=== PATIENT | male | born 1975 | race African-American/Black ===

== ENCOUNTER → 2017-09-28 | Outpatient (CLI) | payer OTHER ==
[~2017-09-28] MED LIST: BENZ100A PO; CEPH500 PO; CYCL10 PO; Cleocin HCl300 MG PO; Naprosyn500 MG PO; SACC250C PO; Sulfamethoxazo1 EAC1 PO; Sulfamethoxazo1 EAC4 PO; TRAM50 PO; XARELTO10 MG PO
[2017-09-28 09:31] LABS: BASOPHILS ABSOLUTE AUTO 0.06 K/mm3 (0.00-0.23); BASOPHILS PERCENT AUTO 0 % (0-2); EOSINOPHILS PERCENT AUTO 1 % (0-6); Hematocrit 40.8 % (37.0-53.0); Hemoglobin 14.1 g/dL (13.5-17.5); IMMATURE GRAN PERCENT AUTO 1 % (0-1); LYMPHOCYTES ABSOLUTE AUTO 1.86 K/mm3 (0.84-5.20); LYMPHOCYTES PERCENT AUTO 10 % (21-46); MONOCYTES ABSOLUTE AUTO 1.66 K/mm3 (0.16-1.47); MONOCYTES PERCENT AUTO 9 % (4-13); Mean Corpuscular HGB 31.1 pg (26.0-34.0); Mean Corpuscular HGB Conc 34.6 g/dL (31.5-36.5); Mean Corpuscular Volume 90 fL (80-100); Mean Platelet Volume 10.3 fL (9.1-12.4); NEUTROPHILS PERCENT AUTO 80 % (41-73); Platelet Count 187 K/mm3 (150-400); RDW Coefficient Variation 12.7 % (11.7-14.2); RDW Standard Deviation 41.8 fL (35.1-46.3); Red Blood Cell Count 4.54 M/mm3 (4.30-5.90); White Blood Cell Count 18.48 K/mm3 (4.00-11.30)
[2017-09-28 09:43] LABS: Alanine Aminotransfer (ALT/SGP 23 U/L (12-78); Albumin, Blood 3.6 g/dL (3.4-5.0); Albumin/Globulin Ratio 0.8 (0.8-1.8); Alk Phos 50 U/L (40-126); Anion Gap 12 mmol/L (6-16); Aspartate Aminotrans (AST/SGOT 15 U/L (12-37); Bilirubin, Total 0.6 mg/dL (0.1-1.0); Blood Urea Nitrogen 12 mg/dL (8-24); Bun/Creatinine Ratio 10.9 (12.0-20.0); CO2, Blood 23 mmol/L (21-32); Chloride, Blood 102 mmol/L (98-108); Globulin, Blood 4.4 g/dL (2.2-4.0); Glomerular Filtration Rate >60 (60-); Glucose, Blood 130 mg/dL (70-99); Potassium, Blood 4.3 mmol/L (3.5-5.5); Sodium, Blood 137 mmol/L (136-145)
== END ==
LOC: LAB SHORT 09:28
PROVIDERS: Physician Assistant Medical
DX: R60.9 Edema, unspecified (principal)
CPT/HCPCS: 80053; 85025

== ENCOUNTER 2017-09-29 20:48 | Inpatient (IN) | payer OTHER ==
[~2017-09-29] VITALS: Ht 182.9 cm; Wt 156.1 kg
[~2017-09-29 20:48] MED LIST changes: -CEPH500 PO; -CYCL10 PO; -Cleocin HCl300 MG PO; -Naprosyn500 MG PO; -SACC250C PO; -Sulfamethoxazo1 EAC1 PO; -Sulfamethoxazo1 EAC4 PO; -TRAM50 PO; -XARELTO10 MG PO
[2017-09-29] MEDS ORDERED: CEPH500 PO (21:33)
[2017-09-29] MEDS ORDERED: Sulfamethoxazo1 EAC1 PO (21:33)
[2017-09-29] MEDS ORDERED: Sulfamethoxazo1 EAC4 PO (21:34)
[2017-09-29 22:14] LABS: BASOPHILS ABSOLUTE AUTO 0.04 K/mm3 (0.00-0.23); BASOPHILS PERCENT AUTO 0 % (0-2); EOSINOPHILS ABSOLUTE AUTO 0.11 K/mm3 (0.00-0.68); EOSINOPHILS PERCENT AUTO 1 % (0-6); Hematocrit 39.9 % (37.0-53.0); Hemoglobin 13.3 g/dL (13.5-17.5); IMMATURE GRAN ABSOLUTE AUTO 0.07 K/mm3 (0.00-0.10); IMMATURE GRAN PERCENT AUTO 0 % (0-1); LYMPHOCYTES ABSOLUTE AUTO 1.87 K/mm3 (0.84-5.20); LYMPHOCYTES PERCENT AUTO 10 % (21-46); MONOCYTES ABSOLUTE AUTO 1.24 K/mm3 (0.16-1.47); MONOCYTES PERCENT AUTO 7 % (4-13); Mean Corpuscular HGB 30.6 pg (26.0-34.0); Mean Corpuscular HGB Conc 33.3 g/dL (31.5-36.5); Mean Corpuscular Volume 92 fL (80-100); Mean Platelet Volume 10.2 fL (9.1-12.4); NEUTROPHILS ABSOLUTE AUTO 15.28 K/mm3 (1.96-9.15); NEUTROPHILS PERCENT AUTO 82 % (41-73); Platelet Count 163 K/mm3 (150-400); RDW Coefficient Variation 12.5 % (11.7-14.2); RDW Standard Deviation 42.5 fL (35.1-46.3); Red Blood Cell Count 4.34 M/mm3 (4.30-5.90); White Blood Cell Count 18.61 K/mm3 (4.00-11.30)
[2017-09-29 22:30] LABS: Albumin, Blood 3.2 g/dL (3.4-5.0); Albumin/Globulin Ratio 0.7 (0.8-1.8); Bilirubin, Total 0.4 mg/dL (0.1-1.0); Bun/Creatinine Ratio 13.2 (12.0-20.0); Calcium, Blood 8.8 mg/dL (8.5-10.1); Creatinine, Blood 1.52 mg/dL (0.60-1.20); Globulin, Blood 4.8 g/dL (2.2-4.0); Potassium, Blood 3.9 mmol/L (3.5-5.5)
[2017-09-30 03:55] LABS: Source, Urine Clean Catch
[2017-09-30 03:58] LABS: Bilirubin, Urine Neg (Neg); Blood, Urine 1+ (Neg); Glucose Qualitative, Urine Neg (Neg); Ketones, Urine Neg (Neg); Leukocyte Esterase, Urine Neg (Neg); Nitrite, Urine Neg (Neg); Protein, Urine 2+ (Neg); Specific Gravity, Urine 1.025 (1.003-1.022); Urobilinogen, Urine 1+ (Normal)
[2017-09-30 03:58] LABS: BASOPHILS ABSOLUTE AUTO 0.04 K/mm3 (0.00-0.23); BASOPHILS PERCENT AUTO 0 % (0-2); EOSINOPHILS ABSOLUTE AUTO 0.21 K/mm3 (0.00-0.68); EOSINOPHILS PERCENT AUTO 1 % (0-6); Hematocrit 36.4 % (37.0-53.0); Hemoglobin 12.2 g/dL (13.5-17.5); IMMATURE GRAN ABSOLUTE AUTO 0.08 K/mm3 (0.00-0.10); IMMATURE GRAN PERCENT AUTO 1 % (0-1); LYMPHOCYTES ABSOLUTE AUTO 1.67 K/mm3 (0.84-5.20); LYMPHOCYTES PERCENT AUTO 10 % (21-46); MONOCYTES ABSOLUTE AUTO 1.45 K/mm3 (0.16-1.47); MONOCYTES PERCENT AUTO 9 % (4-13); Mean Corpuscular HGB 30.4 pg (26.0-34.0); Mean Corpuscular HGB Conc 33.5 g/dL (31.5-36.5); Mean Corpuscular Volume 91 fL (80-100); Mean Platelet Volume 10.4 fL (9.1-12.4); NEUTROPHILS ABSOLUTE AUTO 12.75 K/mm3 (1.96-9.15); NEUTROPHILS PERCENT AUTO 79 % (41-73); Platelet Count 149 K/mm3 (150-400); RDW Coefficient Variation 12.5 % (11.7-14.2); RDW Standard Deviation 41.4 fL (35.1-46.3); Red Blood Cell Count 4.01 M/mm3 (4.30-5.90)
[2017-09-30 04:06] LABS: Appearance, Urine Clear (Clear); Color, Urine Yellow (P-Yellow)
[2017-09-30 04:07] LABS: Bacteria Few /hpf; Red Blood Cells, Urine 0-2 /hpf (0-2); Squamous Epithelial Cells Rare /hpf (Few)
[2017-09-30 04:23] LABS: Alanine Aminotransfer (ALT/SGP 14 U/L (12-78); Albumin, Blood 2.6 g/dL (3.4-5.0); Albumin/Globulin Ratio 0.5 (0.8-1.8); Alk Phos 51 U/L (50-136); Anion Gap 9 mmol/L (6-16); Aspartate Aminotrans (AST/SGOT 7 U/L (12-37); Bilirubin, Total 0.4 mg/dL (0.1-1.0); Blood Urea Nitrogen 16 mg/dL (8-24); Bun/Creatinine Ratio 14.7 (12.0-20.0); CO2, Blood 24 mmol/L (21-32); Calcium, Blood 8.2 mg/dL (8.5-10.1); Chloride, Blood 103 mmol/L (98-108); Creatinine, Blood 1.09 mg/dL (0.60-1.20); Globulin, Blood 4.8 g/dL (2.2-4.0); Glomerular Filtration Rate >60 (60-); Glucose, Blood 119 mg/dL (70-99); Potassium, Blood 3.8 mmol/L (3.5-5.5); Sodium, Blood 136 mmol/L (136-145); Total Protein, Blood 7.4 g/dL (6.4-8.2)
[2017-10-01 04:57] LABS: BASOPHILS ABSOLUTE AUTO 0.01 K/mm3 (0.00-0.23); BASOPHILS PERCENT AUTO 0 % (0-2); EOSINOPHILS PERCENT AUTO 0 % (0-6); Hemoglobin 12.4 g/dL (13.5-17.5); IMMATURE GRAN ABSOLUTE AUTO 0.21 K/mm3 (0.00-0.10); IMMATURE GRAN PERCENT AUTO 1 % (0-1); LYMPHOCYTES ABSOLUTE AUTO 1.42 K/mm3 (0.84-5.20); LYMPHOCYTES PERCENT AUTO 8 % (21-46); MONOCYTES PERCENT AUTO 8 % (4-13); Mean Corpuscular HGB 30.5 pg (26.0-34.0); Mean Corpuscular HGB Conc 33.5 g/dL (31.5-36.5); Mean Corpuscular Volume 91 fL (80-100); Mean Platelet Volume 10.3 fL (9.1-12.4); NEUTROPHILS ABSOLUTE AUTO 15.61 K/mm3 (1.96-9.15); NEUTROPHILS PERCENT AUTO 84 % (41-73); Platelet Count 198 K/mm3 (150-400); RDW Coefficient Variation 12.4 % (11.7-14.2); RDW Standard Deviation 41.3 fL (35.1-46.3); Red Blood Cell Count 4.06 M/mm3 (4.30-5.90); White Blood Cell Count 18.65 K/mm3 (4.00-11.30)
[2017-10-01 15:03] LABS: Heparin PF4 Screen 0.143 OD (<0.400)
[2017-10-02 05:28] LABS: BASOPHILS ABSOLUTE AUTO 0.03 K/mm3 (0.00-0.23); BASOPHILS PERCENT AUTO 0 % (0-2); EOSINOPHILS ABSOLUTE AUTO 0.08 K/mm3 (0.00-0.68); EOSINOPHILS PERCENT AUTO 1 % (0-6); Hematocrit 36.1 % (37.0-53.0); Hemoglobin 11.9 g/dL (13.5-17.5); IMMATURE GRAN PERCENT AUTO 1 % (0-1); LYMPHOCYTES ABSOLUTE AUTO 2.59 K/mm3 (0.84-5.20); LYMPHOCYTES PERCENT AUTO 22 % (21-46); MONOCYTES ABSOLUTE AUTO 0.86 K/mm3 (0.16-1.47); MONOCYTES PERCENT AUTO 7 % (4-13); Mean Corpuscular HGB 30.4 pg (26.0-34.0); Mean Corpuscular Volume 92 fL (80-100); Mean Platelet Volume 10.5 fL (9.1-12.4); NEUTROPHILS PERCENT AUTO 69 % (41-73); Platelet Count 202 K/mm3 (150-400); RDW Coefficient Variation 12.5 % (11.7-14.2); RDW Standard Deviation 42.7 fL (35.1-46.3); Red Blood Cell Count 3.91 M/mm3 (4.30-5.90); White Blood Cell Count 11.86 K/mm3 (4.00-11.30)
[2017-10-02 05:44] LABS: Anion Gap 7 mmol/L (6-16); Blood Urea Nitrogen 18 mg/dL (8-24); Bun/Creatinine Ratio 27.1 (12.0-20.0); CO2, Blood 27 mmol/L (21-32); Calcium, Blood 8.4 mg/dL (8.5-10.1); Chloride, Blood 108 mmol/L (98-108); Creatinine, Blood 0.67 mg/dL (0.60-1.20); Glomerular Filtration Rate >60 (60-); Glucose, Blood 82 mg/dL (70-99); Potassium, Blood 4.3 mmol/L (3.5-5.5); Sodium, Blood 142 mmol/L (136-145)
[2017-10-02] MEDS ORDERED: XARELTO10 MG PO (09:37)
[2017-10-02] MEDS ORDERED: SACC250C PO (09:38)
== END 2017-10-02 11:42 | disposition home or self-care (01) | DRG 872 ==
LOC: ER 20:48 → MEDS 23:21
PROVIDERS: Emergency Medicine; Internal Medicine
DX: A41.9 Sepsis, unspecified organism (principal); N17.9 Acute kidney failure, unspecified; D69.6 Thrombocytopenia, unspecified; E66.01 Morbid (severe) obesity due to excess calories; Z68.42 Body mass index [BMI] 45.0-49.9, adult; I80.02 Phlebitis and thrombophlebitis of superficial vessels of left lower extremity; L03.116 Cellulitis of left lower limb; D64.9 Anemia, unspecified; B35.1 Tinea unguium; G47.30 Sleep apnea, unspecified; I87.2 Venous insufficiency (chronic) (peripheral); N18.1 Chronic kidney disease, stage 1; B95.5 Unspecified streptococcus as the cause of diseases classified elsewhere; E66.9 Obesity, unspecified; F17.210 Nicotine dependence, cigarettes, uncomplicated
CPT/HCPCS: 36415; 80048; 80053; 81001; 83605; 85025; 86022; 87040; 96365; 99285; J0690; J2930; J7030

== ENCOUNTER 2017-12-01 10:36 | Emergency (ER) | payer OTHER ==
[~2017-12-01] VITALS: Ht 182.9 cm; Wt 161.0 kg
[~2017-12-01 10:36] MED LIST changes: +CEPH500 PO; +SACC250C PO; +Sulfamethoxazo1 EAC1 PO; +Sulfamethoxazo1 EAC4 PO; +XARELTO10 MG PO
[2017-12-01] MEDS ORDERED: TRAM50 PO (10:54)
[2017-12-01 11:44] LABS: BASOPHILS ABSOLUTE AUTO 0.04 K/mm3 (0.00-0.23); BASOPHILS PERCENT AUTO 1 % (0-2); EOSINOPHILS ABSOLUTE AUTO 0.46 K/mm3 (0.00-0.68); EOSINOPHILS PERCENT AUTO 5 % (0-6); Hemoglobin 12.3 g/dL (13.5-17.5); IMMATURE GRAN ABSOLUTE AUTO 0.04 K/mm3 (0.00-0.10); IMMATURE GRAN PERCENT AUTO 1 % (0-1); LYMPHOCYTES ABSOLUTE AUTO 2.95 K/mm3 (0.84-5.20); LYMPHOCYTES PERCENT AUTO 34 % (21-46); MONOCYTES ABSOLUTE AUTO 0.63 K/mm3 (0.16-1.47); MONOCYTES PERCENT AUTO 7 % (4-13); Mean Corpuscular HGB Conc 33.2 g/dL (31.5-36.5); Mean Corpuscular Volume 90 fL (80-100); Mean Platelet Volume 10.1 fL (9.1-12.4); NEUTROPHILS ABSOLUTE AUTO 4.64 K/mm3 (1.96-9.15); NEUTROPHILS PERCENT AUTO 53 % (41-73); Platelet Count 216 K/mm3 (150-400); RDW Coefficient Variation 12.7 % (11.7-14.2); White Blood Cell Count 8.76 K/mm3 (4.00-11.30)
[2017-12-01 12:03] LABS: Alanine Aminotransfer (ALT/SGP 19 U/L (12-78); Albumin/Globulin Ratio 0.6 (0.8-1.8); Alk Phos 55 U/L (50-136); Anion Gap 6 mmol/L (6-16); Aspartate Aminotrans (AST/SGOT 13 U/L (12-37); Bilirubin, Total 0.3 mg/dL (0.1-1.0); Blood Urea Nitrogen 11 mg/dL (8-24); Bun/Creatinine Ratio 11.7 (12.0-20.0); CO2, Blood 25 mmol/L (21-32); Calcium, Blood 8.6 mg/dL (8.5-10.1); Chloride, Blood 108 mmol/L (98-108); Creatinine, Blood 0.94 mg/dL (0.60-1.20); Globulin, Blood 4.9 g/dL (2.2-4.0); Glomerular Filtration Rate >60 (60-); Glucose, Blood 119 mg/dL (70-99); Potassium, Blood 3.9 mmol/L (3.5-5.5); Sodium, Blood 139 mmol/L (136-145); Total Protein, Blood 7.9 g/dL (6.4-8.2)
[2017-12-01] MEDS ORDERED: Cleocin HCl300 MG PO (13:14)
== END 2017-12-01 14:09 | disposition home or self-care (01) ==
LOC: ER 10:36
PROVIDERS: Physician Assistant
DX: L03.116 Cellulitis of left lower limb (principal); Z79.2 Long term (current) use of antibiotics; F17.210 Nicotine dependence, cigarettes, uncomplicated
CPT/HCPCS: 36415; 80053; 83605; 85025; 87040; 93971; 96365; 99284

== ENCOUNTER 2018-02-16 17:48 | Emergency (ER) | payer OTHER ==
[~2018-02-16] VITALS: Ht 182.9 cm; Wt 163.3 kg
[~2018-02-16 17:48] MED LIST changes: +Cleocin HCl300 MG PO; +TRAM50 PO
[2018-02-16 19:06] LABS: BASOPHILS ABSOLUTE AUTO 0.03 K/mm3 (0.00-0.23); BASOPHILS PERCENT AUTO 0 % (0-2); EOSINOPHILS ABSOLUTE AUTO 0.33 K/mm3 (0.00-0.68); EOSINOPHILS PERCENT AUTO 4 % (0-6); Hematocrit 37.9 % (37.0-53.0); Hemoglobin 12.6 g/dL (13.5-17.5); IMMATURE GRAN ABSOLUTE AUTO 0.02 K/mm3 (0.00-0.10); IMMATURE GRAN PERCENT AUTO 0 % (0-1); LYMPHOCYTES ABSOLUTE AUTO 1.91 K/mm3 (0.84-5.20); LYMPHOCYTES PERCENT AUTO 23 % (21-46); MONOCYTES ABSOLUTE AUTO 0.54 K/mm3 (0.16-1.47); MONOCYTES PERCENT AUTO 7 % (4-13); Mean Corpuscular HGB 30.1 pg (26.0-34.0); Mean Corpuscular HGB Conc 33.2 g/dL (31.5-36.5); Mean Corpuscular Volume 91 fL (80-100); Mean Platelet Volume 10.2 fL (9.1-12.4); NEUTROPHILS ABSOLUTE AUTO 5.53 K/mm3 (1.96-9.15); NEUTROPHILS PERCENT AUTO 66 % (41-73); Platelet Count 179 K/mm3 (150-400); RDW Standard Deviation 42.5 fL (35.1-46.3); Red Blood Cell Count 4.18 M/mm3 (4.30-5.90); White Blood Cell Count 8.36 K/mm3 (4.00-11.30)
[2018-02-16 19:26] LABS: Alanine Aminotransfer (ALT/SGP 23 U/L (12-78); Albumin, Blood 3.1 g/dL (3.4-5.0); Albumin/Globulin Ratio 0.7 (0.8-1.8); Alk Phos 56 U/L (50-136); Anion Gap 8 mmol/L (6-16); Aspartate Aminotrans (AST/SGOT 20 U/L (12-37); Bilirubin, Total 0.2 mg/dL (0.1-1.0); Blood Urea Nitrogen 11 mg/dL (8-24); Bun/Creatinine Ratio 12.1 (12.0-20.0); CO2, Blood 24 mmol/L (21-32); Calcium, Blood 8.2 mg/dL (8.5-10.1); Chloride, Blood 104 mmol/L (98-108); Creatinine, Blood 0.91 mg/dL (0.60-1.20); Globulin, Blood 4.4 g/dL (2.2-4.0); Glomerular Filtration Rate >60 (60-); Glucose, Blood 133 mg/dL (70-99); Potassium, Blood 3.8 mmol/L (3.5-5.5); Sodium, Blood 136 mmol/L (136-145); Total Protein, Blood 7.5 g/dL (6.4-8.2); Troponin I <0.015 ng/mL (0.000-0.040)
[2018-02-16 22:00] LABS: CPK Creatine Kinase 229 U/L (39-308)
== END 2018-02-16 23:15 | disposition home or self-care (01) ==
LOC: ER 17:48
PROVIDERS: Emergency Medicine
DX: E86.0 Dehydration (principal); R55 Syncope and collapse; F17.200 Nicotine dependence, unspecified, uncomplicated
CPT/HCPCS: 36415; 71046; 80053; 82550; 83880; 84484; 85025; 93005; 93010; 99284-25; J7030

== ENCOUNTER 2018-03-25 19:35 | Emergency (ER) | payer OTHER ==
[~2018-03-25] VITALS: Ht 182.9 cm; Wt 165.6 kg
[2018-03-25] MEDS ORDERED: CYCL10 PO (21:11)
[2018-03-25] MEDS ORDERED: Naprosyn500 MG PO (21:11)
== END 2018-03-25 21:18 | disposition home or self-care (01) ==
LOC: ER 19:35
DX: M54.32 Sciatica, left side (principal); F17.210 Nicotine dependence, cigarettes, uncomplicated
CPT/HCPCS: 93971; 99283-25

== ENCOUNTER 2018-11-23 18:02 | Inpatient (IN) | payer OTHER ==
[~2018-11-23] VITALS: Ht 182.9 cm; Wt 148.9 kg
[~2018-11-23 18:02] MED LIST changes: +CYCL10 PO; +Naprosyn500 MG PO
[2018-11-23 18:56] LABS: BASOPHILS ABSOLUTE AUTO 0.03 K/mm3 (0.00-0.23); BASOPHILS PERCENT AUTO 0 % (0-2); EOSINOPHILS ABSOLUTE AUTO 0.07 K/mm3 (0.00-0.68); EOSINOPHILS PERCENT AUTO 1 % (0-6); Hematocrit 44.9 % (37.0-53.0); Hemoglobin 15.1 g/dL (13.5-17.5); IMMATURE GRAN ABSOLUTE AUTO 0.05 K/mm3 (0.00-0.10); IMMATURE GRAN PERCENT AUTO 0 % (0-1); LYMPHOCYTES ABSOLUTE AUTO 1.52 K/mm3 (0.84-5.20); LYMPHOCYTES PERCENT AUTO 11 % (21-46); MONOCYTES ABSOLUTE AUTO 0.81 K/mm3 (0.16-1.47); MONOCYTES PERCENT AUTO 6 % (4-13); Mean Corpuscular HGB 30.6 pg (26.0-34.0); Mean Corpuscular HGB Conc 33.6 g/dL (31.5-36.5); Mean Corpuscular Volume 91 fL (80-100); Mean Platelet Volume 10.4 fL (9.1-12.4); NEUTROPHILS ABSOLUTE AUTO 11.22 K/mm3 (1.96-9.15); NEUTROPHILS PERCENT AUTO 82 % (41-73); Platelet Count 155 K/mm3 (150-400); RDW Coefficient Variation 12.8 % (11.7-14.2); RDW Standard Deviation 43.1 fL (35.1-46.3); Red Blood Cell Count 4.93 M/mm3 (4.30-5.90)
[2018-11-23 19:18] LABS: Source, Urine Clean Catch
[2018-11-23 19:22] LABS: Blood, Urine 1+ (Neg); Glucose Qualitative, Urine Neg (Neg); Ketones, Urine 1+ (Neg); Leukocyte Esterase, Urine 1+ (Neg); Nitrite, Urine Neg (Neg); Protein, Urine 3+ (Neg); Specific Gravity, Urine 1.025 (1.003-1.022); Urobilinogen, Urine 2+ (Normal)
[2018-11-23 19:24] LABS: Alanine Aminotransfer (ALT/SGP 21 U/L (12-78); Albumin, Blood 3.4 g/dL (3.4-5.0); Albumin/Globulin Ratio 0.7 (0.8-1.8); Alk Phos 53 U/L (50-136); Anion Gap 7 mmol/L (6-16); Aspartate Aminotrans (AST/SGOT 15 U/L (12-37); Bilirubin, Total 0.4 mg/dL (0.1-1.0); Blood Urea Nitrogen 17 mg/dL (8-24); Bun/Creatinine Ratio 15.3 (12.0-20.0); CO2, Blood 26 mmol/L (21-32); Calcium, Blood 8.9 mg/dL (8.5-10.1); Chloride, Blood 101 mmol/L (98-108); Creatinine, Blood 1.11 mg/dL (0.60-1.20); Globulin, Blood 5.1 g/dL (2.2-4.0); Glomerular Filtration Rate >60 (60-); Glucose, Blood 129 mg/dL (70-99); Potassium, Blood 3.6 mmol/L (3.5-5.5); Sodium, Blood 134 mmol/L (136-145); Total Protein, Blood 8.5 g/dL (6.4-8.2)
[2018-11-23 19:36] LABS: Appearance, Urine Clear (Clear); Bilirubin, Urine 1+ (Neg); Color, Urine Amber (P-Yellow)
[2018-11-23 19:37] LABS: Bacteria Many /hpf; Mucus Heavy (0-Heavy); Red Blood Cells, Urine 0-2 /hpf (0-2); Squamous Epithelial Cells Not Seen /hpf (Few)
--- NOTE | 2018-11-24 01:13 | NUR ---
have tried tylenol, damp cloths, ice pack, cool room and fluids to try to reduce temp, pulse still high but lower than when arrived as is respiration rate, will continue to monitor and treat
[2018-11-24 04:48] LABS: Hematocrit 40.4 % (37.0-53.0); Hemoglobin 13.5 g/dL (13.5-17.5); Mean Corpuscular HGB 30.3 pg (26.0-34.0); Mean Corpuscular HGB Conc 33.4 g/dL (31.5-36.5); Mean Corpuscular Volume 91 fL (80-100); Mean Platelet Volume 10.4 fL (9.1-12.4); Platelet Count 138 K/mm3 (150-400); RDW Coefficient Variation 12.7 % (11.7-14.2); RDW Standard Deviation 42.2 fL (35.1-46.3); Red Blood Cell Count 4.45 M/mm3 (4.30-5.90); White Blood Cell Count 12.36 K/mm3 (4.00-11.30)
--- NOTE | 2018-11-24 07:20 | NUR ---
a+o able to move about room on own, calls appropriately, temp up and down, heart rate getting lower but still above 100, call light in reach, ns infusing room air, walking rounds completed with day staff
--- NOTE | 2018-11-24 19:25 | NUR ---
SHIFT SUMMARY PATIENT A&O X4, INDEPENDENT. DENIES ANY PAIN OR SOB. MEDICATED THROUGHOUT SHIFT FOR ELEVATED TEMPERATURE. VASCULAR DISCOLORATION TO LLE WHICH IS OUTLINED WITH INK. PATIENT UP TO WALK THE HALLS THIS SHIFT. NS RUNNING PER Oct. IV ABX. CULTURE SWAB SENT. NO ACUTE CHANGES. REPORT GIVEN TO ONCOMING RN.
--- NOTE | 2018-11-25 06:19 | NUR ---
SHIFT SUMMARY PT SLEPT WELL T/O NIGHT. AOX4. DENIES SOB OR N/V. REPORTS 5/10 R. EAR THROBBING PAIN & LLE PAIN DUE TO CELLULITIS. MEDICATED W/TYLENOL PER ORDERS FOR PAIN & INCREASED TEMP OF 102.3 TEMPORAL/99.8 ORAL, WHICH BROUGHT TEMP DOWN TO 98.6 & PT STATED IT WAS THE FIRST TIME HIS TEMP HAD BEEN NORMAL WHILE BEING @HOSPITAL. LLE IS HOT TO TOUCH, EDEMATOUS, DISCOLORED, OUTLINED W/BLACK INK & THE REDNESS APPEARS TO HAVE GROWN SLIGHTLY PAST INK LINE ON L. CALF. PT INDEPENDENT IN ROOM & UP 1X LAST NIGHT TO AMBULATE MCDONALD. CALL LIGHT IS IN REACH & I WILL CONTINUE TO MONITOR.
[2018-11-25 11:50] LABS: BASOPHILS ABSOLUTE AUTO 0.03 K/mm3 (0.00-0.23); BASOPHILS PERCENT AUTO 0 % (0-2); EOSINOPHILS ABSOLUTE AUTO 0.14 K/mm3 (0.00-0.68); EOSINOPHILS PERCENT AUTO 1 % (0-6); Hematocrit 39.6 % (37.0-53.0); Hemoglobin 13.2 g/dL (13.5-17.5); IMMATURE GRAN ABSOLUTE AUTO 0.04 K/mm3 (0.00-0.10); IMMATURE GRAN PERCENT AUTO 0 % (0-1); LYMPHOCYTES ABSOLUTE AUTO 2.16 K/mm3 (0.84-5.20); LYMPHOCYTES PERCENT AUTO 22 % (21-46); MONOCYTES ABSOLUTE AUTO 1.22 K/mm3 (0.16-1.47); MONOCYTES PERCENT AUTO 12 % (4-13); Mean Corpuscular HGB 30.5 pg (26.0-34.0); Mean Corpuscular HGB Conc 33.3 g/dL (31.5-36.5); Mean Corpuscular Volume 92 fL (80-100); Mean Platelet Volume 10.5 fL (9.1-12.4); NEUTROPHILS ABSOLUTE AUTO 6.46 K/mm3 (1.96-9.15); NEUTROPHILS PERCENT AUTO 64 % (41-73); Platelet Count 157 K/mm3 (150-400); RDW Coefficient Variation 12.9 % (11.7-14.2); RDW Standard Deviation 43.5 fL (35.1-46.3); Red Blood Cell Count 4.33 M/mm3 (4.30-5.90); White Blood Cell Count 10.05 K/mm3 (4.00-11.30)
--- NOTE | 2018-11-25 18:34 | NUR ---
SHIFT SUMMARY PATIENT A&O X4, INDEPENDENT IN THE ROOM. DENIES SOB OR NAUSEA. C/O PAIN TO LLE AND A HEADACHE. RN MEDICATED PER Oct. OUT TO WALK SEVERAL TIMES THIS SHIFT. VASCULAR DISCOLORATION TO LLE IS OUTLINED. SLIGHT REDNESS PRESENT TOWARD BOARD TO OUTLINE. NO ACUTE CHANGES THIS SHIFT.
[2018-11-26 05:17] LABS: BASOPHILS ABSOLUTE AUTO 0.03 K/mm3 (0.00-0.23); BASOPHILS PERCENT AUTO 0 % (0-2); EOSINOPHILS ABSOLUTE AUTO 0.22 K/mm3 (0.00-0.68); EOSINOPHILS PERCENT AUTO 3 % (0-6); Hematocrit 37.4 % (37.0-53.0); IMMATURE GRAN ABSOLUTE AUTO 0.03 K/mm3 (0.00-0.10); IMMATURE GRAN PERCENT AUTO 0 % (0-1); LYMPHOCYTES ABSOLUTE AUTO 2.03 K/mm3 (0.84-5.20); LYMPHOCYTES PERCENT AUTO 24 % (21-46); MONOCYTES ABSOLUTE AUTO 0.97 K/mm3 (0.16-1.47); MONOCYTES PERCENT AUTO 11 % (4-13); Mean Corpuscular HGB 29.9 pg (26.0-34.0); Mean Corpuscular HGB Conc 32.1 g/dL (31.5-36.5); Mean Corpuscular Volume 93 fL (80-100); NEUTROPHILS ABSOLUTE AUTO 5.27 K/mm3 (1.96-9.15); NEUTROPHILS PERCENT AUTO 62 % (41-73); Platelet Count 144 K/mm3 (150-400); RDW Coefficient Variation 12.8 % (11.7-14.2); RDW Standard Deviation 44.3 fL (35.1-46.3); Red Blood Cell Count 4.01 M/mm3 (4.30-5.90); White Blood Cell Count 8.55 K/mm3 (4.00-11.30)
--- NOTE | 2018-11-26 06:43 | NUR ---
SHIFT SUMMARY PT HAS SLEPT WELL T/O NIGHT. NO ACUTE CHANGES THIS SHIFT. DENIES NAUSEA OR SOB. REPORTS 5/10 THROBBING PAIN IN R. EAR & LLE, MEDICATED 1X W/TYLENOL PER ORDERS FOR PAIN & PT STATES PAIN LEVEL HAS BEEN AROUND 3/10 THE REST OF THE NIGHT & IS TOLERABLE. PT HAS BEEN AFEBRILE T/O NIGHT. PT HAS AMBULATED THE HALLS 2 TIMES THIS SHIFT & STATES "I FEEL WAY BETTER THAN I DID BEFORE." LAB CALLED ME LAST NIGHT TO NOTIFY THE PT HAD A POSITIVE BLOOD CULTURE OF GRAM + COCCI IN CLUSTERS, CALLED PHARMACY & THEY STATED THE PT WAS COVERED W/CURRENT ANTIBIOTIC TX, NOTIFIED CHARGE NURSE. CALL LIGHT IS IN REACH.
[2018-11-26 08:30] LABS: Anion Gap 7 mmol/L (6-16); Blood Urea Nitrogen 11 mg/dL (8-24); Bun/Creatinine Ratio 13.9 (12.0-20.0); CO2, Blood 27 mmol/L (21-32); Calcium, Blood 8.5 mg/dL (8.5-10.1); Chloride, Blood 105 mmol/L (98-108); Creatinine, Blood 0.79 mg/dL (0.60-1.20); Glomerular Filtration Rate >60 (60-); Glucose, Blood 94 mg/dL (70-99); Potassium, Blood 4.4 mmol/L (3.5-5.5); Sodium, Blood 139 mmol/L (136-145)
[2018-11-26] MEDS ORDERED: ACET325 PO (09:44)
[2018-11-26] MEDS ORDERED: ASPI81CH PO (09:45)
[2018-11-26] MEDS ORDERED: CEPH500 PO (09:45)
[2018-11-26] MEDS ORDERED: TRAM50 PO (09:46)
[2018-11-26] MEDS ORDERED: Acidophilus La100 GM PO (09:46)
--- NOTE | 2018-11-26 10:27 | NUR ---
PT DISCHARGED VERB UNDERSTANDING OF DC INSTRUCTIONS AND MEDICATIONS. PERSONAL BELONGING WITH PT. TRANSPORTATION PROVIDED THROUGH [facility].
== END 2018-11-26 10:25 | disposition home or self-care (01) | DRG 872 ==
LOC: ER 18:02 → MEDS 20:09 → ENPENDDIS 11-26 09:23 → MEDS 11-26 10:25
PROVIDERS: Emergency Medicine; Family Medicine; Internal Medicine; Nurse Practitioner Acute Care; ADMIT Internal Medicine
DX: A41.9 Sepsis, unspecified organism (principal); E87.1 Hypo-osmolality and hyponatremia; L03.116 Cellulitis of left lower limb; Z68.41 Body mass index [BMI] 40.0-44.9, adult; F17.210 Nicotine dependence, cigarettes, uncomplicated; E66.01 Morbid (severe) obesity due to excess calories; I87.2 Venous insufficiency (chronic) (peripheral); B35.1 Tinea unguium
CPT/HCPCS: 36415; 80048; 80053; 81001; 83605; 85025; 85027; 87040; 87205; 96365; 96375; 99284-25; J0690; J0696; J1650; J7030

== ENCOUNTER → 2019-02-07 | Outpatient (CLI) | payer OTHER ==
[~2019-02-07] MED LIST changes: +ACET325 PO; +ASPI81CH PO; +Acidophilus La100 GM PO
== END | disposition home or self-care (01) ==
LOC: LAB SHORT 08:22 → PLD 08:22
DX: B35.1 Tinea unguium (principal)
CPT/HCPCS: 88305; 88312

== ENCOUNTER 2021-09-02 15:24 | Inpatient (IN) | payer BC, OTHER ==
[~2021-09-02] VITALS: Ht 182.9 cm; Wt 172.4 kg
[2021-09-02 16:24] LABS: BASOPHILS ABSOLUTE AUTO 0.04 K/mm3 (0.00-0.23); BASOPHILS PERCENT AUTO 0 % (0-2); EOSINOPHILS ABSOLUTE AUTO 0.35 K/mm3 (0.00-0.68); EOSINOPHILS PERCENT AUTO 3 % (0-6); Hematocrit 41.9 % (37.0-53.0); Hemoglobin 13.9 g/dL (13.5-17.5); IMMATURE GRAN ABSOLUTE AUTO 0.03 K/mm3 (0.00-0.10); IMMATURE GRAN PERCENT AUTO 0 % (0-1); LYMPHOCYTES ABSOLUTE AUTO 2.63 K/mm3 (0.84-5.20); LYMPHOCYTES PERCENT AUTO 20 % (21-46); MONOCYTES ABSOLUTE AUTO 0.91 K/mm3 (0.16-1.47); MONOCYTES PERCENT AUTO 7 % (4-13); Mean Corpuscular HGB 29.5 pg (26.0-34.0); Mean Corpuscular HGB Conc 33.2 g/dL (31.5-36.5); Mean Corpuscular Volume 89 fL (80-100); Mean Platelet Volume 10.3 fL (9.1-12.4); NEUTROPHILS ABSOLUTE AUTO 9.54 K/mm3 (1.96-9.15); NEUTROPHILS PERCENT AUTO 71 % (41-73); Platelet Count 224 K/mm3 (150-400); RDW Coefficient Variation 13.4 % (11.7-14.2); RDW Standard Deviation 43.8 fL (35.1-46.3); Red Blood Cell Count 4.71 M/mm3 (4.30-5.90)
[2021-09-02 17:15] LABS: Alanine Aminotransfer (ALT/SGP 25 U/L (12-78); Albumin, Blood 3.6 g/dL (3.4-5.0); Albumin/Globulin Ratio 0.8 (0.8-1.8); Alk Phos 60 U/L (50-136); Anion Gap 7 mmol/L (6-16); Aspartate Aminotrans (AST/SGOT 25 U/L (12-37); Bilirubin, Total 0.3 mg/dL (0.1-1.0); Blood Urea Nitrogen 14 mg/dL (8-24); Bun/Creatinine Ratio 16.7 (12.0-20.0); CO2, Blood 26 mmol/L (21-32); Calcium, Blood 9.3 mg/dL (8.5-10.1); Chloride, Blood 105 mmol/L (98-108); Creatinine, Blood 0.84 mg/dL (0.60-1.20); Globulin, Blood 4.6 g/dL (2.2-4.0); Glomerular Filtration Rate >60 (60-); Glucose, Blood 120 mg/dL (70-99); Potassium, Blood 4.3 mmol/L (3.5-5.5); Sodium, Blood 138 mmol/L (136-145); Total Protein, Blood 8.2 g/dL (6.4-8.2)
--- NOTE | 2021-09-03 03:49 | NUR ---
ADMISSION NOTE/SHIFT SUMMARY PT AOX4 PLEASANT AND COOPERATIVE ARRIVED ON UNIT FROM ED AT 2300 HEAD TO TOE ASSESSEMENT DONE SKIN INTACT LEFT LOWER LEG SWOLLEN WARM NONE OPEN DX WITH CELLULITIES .PT INDEPEDENT WALK TO THE BATHROOM WITH NO ASSISSTANCE ON R/A CHEST SOUNDS CLEAR NO SOB NOTED.ORIENTED TO ROOM AND CALL LIGHT'
[2021-09-03 05:03] LABS: BASOPHILS ABSOLUTE AUTO 0.03 K/mm3 (0.00-0.23); BASOPHILS PERCENT AUTO 0 % (0-2); EOSINOPHILS ABSOLUTE AUTO 0.16 K/mm3 (0.00-0.68); EOSINOPHILS PERCENT AUTO 1 % (0-6); Hematocrit 38.2 % (37.0-53.0); Hemoglobin 12.5 g/dL (13.5-17.5); IMMATURE GRAN ABSOLUTE AUTO 0.04 K/mm3 (0.00-0.10); IMMATURE GRAN PERCENT AUTO 0 % (0-1); LYMPHOCYTES ABSOLUTE AUTO 1.44 K/mm3 (0.84-5.20); LYMPHOCYTES PERCENT AUTO 11 % (21-46); MONOCYTES ABSOLUTE AUTO 0.84 K/mm3 (0.16-1.47); MONOCYTES PERCENT AUTO 7 % (4-13); Mean Corpuscular HGB 29.5 pg (26.0-34.0); Mean Corpuscular HGB Conc 32.7 g/dL (31.5-36.5); Mean Corpuscular Volume 90 fL (80-100); Mean Platelet Volume 10.3 fL (9.1-12.4); NEUTROPHILS ABSOLUTE AUTO 10.22 K/mm3 (1.96-9.15); NEUTROPHILS PERCENT AUTO 80 % (41-73); Platelet Count 166 K/mm3 (150-400); RDW Coefficient Variation 13.8 % (11.7-14.2); RDW Standard Deviation 45.4 fL (35.1-46.3); Red Blood Cell Count 4.24 M/mm3 (4.30-5.90); White Blood Cell Count 12.73 K/mm3 (4.00-11.30)
[2021-09-03 05:39] LABS: Anion Gap 5 mmol/L (6-16); Blood Urea Nitrogen 12 mg/dL (8-24); Bun/Creatinine Ratio 14.9 (12.0-20.0); CO2, Blood 26 mmol/L (21-32); Calcium, Blood 8.7 mg/dL (8.5-10.1); Chloride, Blood 105 mmol/L (98-108); Creatinine, Blood 0.81 mg/dL (0.60-1.20); Glomerular Filtration Rate >60 (60-); Glucose, Blood 149 mg/dL (70-99); Potassium, Blood 4.2 mmol/L (3.5-5.5); Sodium, Blood 136 mmol/L (136-145)
[2021-09-03] MEDS ORDERED: CEFTRIAXONE2 G1 IV ×2 (14:10)
[2021-09-03] MEDS ORDERED: VISBIOME 112.51 EACH PO ×2 (14:13)
--- NOTE | 2021-09-03 16:07 | NUR ---
DISCHARGE PATIENT DISCHARGED TO HOME. PATIENT EDUCATION PROVIDED ON CELLULITIS, MEDICATIONS AND UPCOMING APTS. INSTRUCTIONS WERE GIVE REGARDING IV CARE AT HOME, BECAUSE PATIENT IS DISCHARGING WITH ONE IV IN PLACE LEFT HAND. THE SECOND IV THAT WAS IN THE LEFT AC WAS REMOVED BEFORE THE PATIENT DISCHARGED. THREE INFUSION APT WERE SET UP AND WRITTEN APT REMINDERS WERE GIVEN TO THE PATIENT. PATIENT WAS ESCORTED TO TO THE DOORS WHERE HIS TAXI PICKED HIM UP TO BRING HIM HOME.
== END 2021-09-03 16:01 | disposition home or self-care (01) | DRG 872 ==
LOC: ER 15:24 → MEDS 22:44
PROVIDERS: Family Medicine; Physician Assistant; ADMIT Internal Medicine
DX: A41.9 Sepsis, unspecified organism (principal); L03.116 Cellulitis of left lower limb; Z68.43 Body mass index [BMI] 50.0-59.9, adult; E66.01 Morbid (severe) obesity due to excess calories; Z71.6 Tobacco abuse counseling; I87.2 Venous insufficiency (chronic) (peripheral); I89.0 Lymphedema, not elsewhere classified; F17.210 Nicotine dependence, cigarettes, uncomplicated; Z28.82 Immunization not carried out because of caregiver refusal
CPT/HCPCS: 36415; 73590; 80048; 80053; 83036; 83605; 85025; 87040; 93971; 96365; 96375; 97116; 97161; 97530; 99285-25; A9270; J0690; J0696; J1650; J1885; J7030

== ENCOUNTER 2021-09-04 01:08 | Day surgery (SDC) | payer BC, OTHER ==
[~2021-09-04 01:08] MED LIST changes: +CEFTRIAXONE2 G1 IV; +VISBIOME 112.51 EACH PO
== END 2021-09-04 13:47 | disposition home or self-care (01) ==
LOC: ATC 01:08
DX: A41.9 Sepsis, unspecified organism (principal); L03.116 Cellulitis of left lower limb; F17.210 Nicotine dependence, cigarettes, uncomplicated; E66.01 Morbid (severe) obesity due to excess calories
CPT/HCPCS: 96374; J0696

== ENCOUNTER 2021-09-05 02:17 | Day surgery (SDC) | payer BC, OTHER | END 2021-09-05 10:43 | disposition home or self-care (01) | LOC: ATC 02:17 | DX: A41.9 Sepsis, unspecified organism (principal); L03.116 Cellulitis of left lower limb | CPT/HCPCS: 96365; J0696 ==

== ENCOUNTER 2021-09-06 00:24 | Day surgery (SDC) | payer BC, OTHER | END 2021-09-06 11:10 | disposition home or self-care (01) | LOC: ATC 00:24 | DX: A41.9 Sepsis, unspecified organism (principal); L03.90 Cellulitis, unspecified; L03.116 Cellulitis of left lower limb; F17.210 Nicotine dependence, cigarettes, uncomplicated; E66.01 Morbid (severe) obesity due to excess calories | CPT/HCPCS: J0696 ==

== ENCOUNTER 2021-09-07 03:59 | Day surgery (SDC) | payer BC, OTHER | END 2021-09-07 11:17 | disposition home or self-care (01) | LOC: ATC 03:59 | DX: A41.9 Sepsis, unspecified organism (principal); L03.116 Cellulitis of left lower limb | CPT/HCPCS: J0696 ==

== ENCOUNTER 2021-09-08 03:08 | Day surgery (SDC) | payer BC, OTHER | END 2021-09-08 11:05 | disposition home or self-care (01) | LOC: ATC 03:08 | DX: A41.9 Sepsis, unspecified organism (principal); L03.116 Cellulitis of left lower limb | CPT/HCPCS: J0696 ==

== ENCOUNTER 2021-09-09 02:42 | Day surgery (SDC) | payer BC, OTHER | END 2021-09-09 11:01 | disposition home or self-care (01) | LOC: ATC 02:42 | DX: A41.9 Sepsis, unspecified organism (principal); L03.116 Cellulitis of left lower limb | CPT/HCPCS: J0696 ==

== ENCOUNTER 2021-09-10 00:38 | Day surgery (SDC) | payer BC, OTHER ==
--- NOTE | 2021-09-10 11:19 | NUR ---
IV PUSH ROCEPHIN ADMINISTERED OVER 5MIN PUSH. PT TOLERATED WELL
== END 2021-09-10 11:13 | disposition home or self-care (01) ==
LOC: ATC 00:38
DX: A41.9 Sepsis, unspecified organism (principal); L03.116 Cellulitis of left lower limb; F17.200 Nicotine dependence, unspecified, uncomplicated; E66.01 Morbid (severe) obesity due to excess calories
CPT/HCPCS: J0696

== ENCOUNTER → 2021-09-19 | Outpatient (CLI) | payer BC, OTHER ==
[2021-09-19 13:12] LABS: Microalb/Creat Ratio UR, Rand 12.824 mg/g (0.000-30.000); Microalbumin, Random Urine 43.6 mg/L (0.000-20.000)
== END | disposition home or self-care (01) ==
LOC: LAB SHORT 09:09
PROVIDERS: Family Medicine
DX: E11.59 Type 2 diabetes mellitus with other circulatory complications (principal)
CPT/HCPCS: 82043; 82570

== ENCOUNTER 2022-02-17 10:36 | Emergency (ER) | payer BC, OTHER ==
[~2022-02-17] VITALS: Ht 182.9 cm; Wt 181.4 kg
[2022-02-17 11:34] LABS: Albumin, Blood 3.4 g/dL (3.4-5.0); Albumin/Globulin Ratio 0.7 (0.8-1.8); Bilirubin, Total 0.5 mg/dL (0.1-1.0); Bun/Creatinine Ratio 16.5 (12.0-20.0); Calcium, Blood 9.1 mg/dL (8.5-10.1); Creatinine, Blood 0.61 mg/dL (0.60-1.20); Globulin, Blood 4.8 g/dL (2.2-4.0); Potassium, Blood 5.7 mmol/L (3.5-5.5); Total Protein, Blood 8.2 g/dL (6.4-8.2)
[2022-02-17 16:43] LABS: BASOPHILS ABSOLUTE AUTO 0.04 K/mm3 (0.00-0.23); BASOPHILS PERCENT AUTO 0 % (0-2); EOSINOPHILS ABSOLUTE AUTO 0.04 K/mm3 (0.00-0.68); EOSINOPHILS PERCENT AUTO 0 % (0-6); Hematocrit 41.2 % (37.0-53.0); IMMATURE GRAN ABSOLUTE AUTO 0.08 K/mm3 (0.00-0.10); IMMATURE GRAN PERCENT AUTO 1 % (0-1); LYMPHOCYTES ABSOLUTE AUTO 1.12 K/mm3 (0.84-5.20); LYMPHOCYTES PERCENT AUTO 7 % (21-46); MONOCYTES ABSOLUTE AUTO 0.75 K/mm3 (0.16-1.47); MONOCYTES PERCENT AUTO 5 % (4-13); Mean Corpuscular HGB 29.8 pg (26.0-34.0); Mean Corpuscular Volume 88 fL (80-100); Mean Platelet Volume 10.9 fL (9.1-12.4); NEUTROPHILS ABSOLUTE AUTO 13.35 K/mm3 (1.96-9.15); NEUTROPHILS PERCENT AUTO 87 % (41-73); Platelet Count 175 K/mm3 (150-400); RDW Coefficient Variation 13.2 % (11.7-14.2); RDW Standard Deviation 42.8 fL (35.1-46.3); White Blood Cell Count 15.38 K/mm3 (4.00-11.30)
[2022-02-17 17:35] LABS: Influenza A, PCR NEGATIVE (NEGATIVE); Influenza B, PCR NEGATIVE (NEGATIVE); Resp Syncytial Virus, PCR NEGATIVE (NEGATIVE); SARS-Cov-2 (COVID-19) PCR, MMC NEGATIVE (NEGATIVE)
[2022-02-17] MEDS ORDERED: MONDOXYNE NL100 MG PO (17:43)
== END 2022-02-17 17:58 | disposition home or self-care (01) ==
LOC: ER 10:36
PROVIDERS: Student in an Organized Health Care Education/Training Program
DX: L03.116 Cellulitis of left lower limb (principal); F17.210 Nicotine dependence, cigarettes, uncomplicated; Z20.822 Contact with and (suspected) exposure to COVID-19; Z86.718 Personal history of other venous thrombosis and embolism
CPT/HCPCS: 0241U; 36415; 71045; 80053; 84484; 85025; 93005; 93010; 93971; 96374; 99284-25; A9270; J1885; J7030

== ENCOUNTER 2023-12-08 22:20 | Observation (INO) | payer BC, OTHER ==
[~2023-12-08] VITALS: Ht 182.9 cm; Wt 170.0 kg
[~2023-12-08 22:20] MED LIST changes: +MONDOXYNE NL100 MG PO
[2023-12-08 23:11] LABS: BASOPHILS ABSOLUTE AUTO 0.02 K/mm3 (0.00-0.23); BASOPHILS PERCENT AUTO 0 % (0-2); EOSINOPHILS ABSOLUTE AUTO 0.14 K/mm3 (0.00-0.68); EOSINOPHILS PERCENT AUTO 2 % (0-6); Hematocrit 38.8 % (37.0-53.0); Hemoglobin 12.9 g/dL (13.5-17.5); IMMATURE GRAN ABSOLUTE AUTO 0.01 K/mm3 (0.00-0.10); IMMATURE GRAN PERCENT AUTO 0 % (0-1); LYMPHOCYTES ABSOLUTE AUTO 1.47 K/mm3 (0.84-5.20); LYMPHOCYTES PERCENT AUTO 25 % (21-46); MONOCYTES ABSOLUTE AUTO 0.62 K/mm3 (0.16-1.47); MONOCYTES PERCENT AUTO 11 % (4-13); Mean Corpuscular HGB 30.1 pg (26.0-34.0); Mean Corpuscular HGB Conc 33.2 g/dL (31.5-36.5); Mean Corpuscular Volume 90 fL (80-100); Mean Platelet Volume 10.6 fL (9.1-12.4); NEUTROPHILS ABSOLUTE AUTO 3.58 K/mm3 (1.96-9.15); NEUTROPHILS PERCENT AUTO 61 % (41-73); Platelet Count 174 K/mm3 (150-400); RDW Coefficient Variation 13.1 % (11.7-14.2); Red Blood Cell Count 4.29 M/mm3 (4.30-5.90); White Blood Cell Count 5.84 K/mm3 (4.00-11.30)
[2023-12-08 23:25] LABS: Albumin, Blood 3.4 g/dL (3.4-5.0); Albumin/Globulin Ratio 0.8 (0.8-1.8); Bilirubin, Total 0.3 mg/dL (0.1-1.0); Calcium, Blood 9.3 mg/dL (8.5-10.1); Creatinine, Blood 0.72 mg/dL (0.60-1.20); Globulin, Blood 4.1 g/dL (2.2-4.0); Potassium, Blood 4.4 mmol/L (3.5-5.5); Total Protein, Blood 7.5 g/dL (6.4-8.2)
[2023-12-09 00:11] LABS: Influenza A, PCR NEGATIVE (NEGATIVE); Influenza B, PCR NEGATIVE (NEGATIVE); Resp Syncytial Virus, PCR NEGATIVE (NEGATIVE); SARS-Cov-2 (COVID-19) PCR, MMC NEGATIVE (NEGATIVE)
[2023-12-09] MEDS ORDERED: METF500 PO (01:55)
[2023-12-09] MEDS ORDERED: ATOR20 PO (01:55)
[2023-12-09] MEDS ORDERED: Lisinopril2.5 MG PO (01:55)
[2023-12-09] MEDS ORDERED: INSULANI SC (01:57)
[2023-12-09] MEDS ORDERED: Ipratropium/Albuterol SulF 2.5-0.5MG/3 ML Amp INH ONE (02:10)
[2023-12-09] MEDS ORDERED: Ketorolac Tromethamine 30mg Vial IV ONE (02:10)
[2023-12-09] MEDS ORDERED: Azithromycin 500 MG in NS 250 ML IV ONE (06:15)
[2023-12-09] MEDS ORDERED: CefTRIAXone Sodium 1,000 MG in NS 50 ML IV ONE (06:15)
[2023-12-09] MEDS ORDERED: Acetaminophen 325 MG TABLET PO PRN (06:25)
[2023-12-09] MEDS ORDERED: Ondansetron 4 MG TAB PO PRN (06:25)
[2023-12-09] MEDS ORDERED: Insulin Human Lispro 100 Units/ML 3ML Syringe SC SCH (07:30)
[2023-12-09] MEDS ORDERED: Lactobacil 2-S.Thermo-Bifido 1 1 Cap PO SCH (09:00)
--- NOTE | 2023-12-09 09:43 | NUR ---
medications Pt denied taking Doxcycline that was listed on his Med rec. Doxcycline removed. Care ongoing.
[2023-12-09 09:46] VITALS: BP 133/92
[2023-12-09] MEDS ORDERED: Albuterol 2.5 MG/3 ML VIAL INH PRN (10:35)
[2023-12-09] MEDS ORDERED: Furosemide 10 MG / ML 2ML Vial IV SCH (11:00)
[2023-12-09 13:28] LABS: Adenovirus Not Detected (NOT DETECT); Coronavirus 229E Not Detected (NOT DETECT)
[2023-12-09 13:29] LABS: Bordetella pertussis Not Detected (NOT DETECT); Chlamydophila pneumoniae Not Detected (NOT DETECT); Coronavirus HKU1 Not Detected (NOT DETECT); Coronavirus NL63 Not Detected (NOT DETECT); Coronavirus OC43 Not Detected (NOT DETECT); Human Metapneumovirus Detected (NOT DETECT); Human Rhinovirus/Enterovirus Not Detected (NOT DETECT); Influenza A/2009-H1 Not Detected (NOT DETECT); Influenza A/H1 Not Detected (NOT DETECT); Influenza A/H3 Not Detected (NOT DETECT); Influenza B Not Detected (NOT DETECT); Mycoplasma pneumoniae Not Detected (NOT DETECT); Parainfluenza Virus 1 Not Detected (NOT DETECT); Parainfluenza Virus 2 Not Detected (NOT DETECT); Parainfluenza Virus 3 Not Detected (NOT DETECT); Parainfluenza Virus 4 Not Detected (NOT DETECT); Respiratory Syncytial Virus Not Detected (NOT DETECT); SARS-Cov-2 (COVID-19), BioFire Not Detected (NOT DETECT)
[2023-12-09 15:06] VITALS: BP 134/91
[2023-12-09 19:07] VITALS: BP 137/91
--- NOTE | 2023-12-09 20:06 | NUR ---
SHIFT SUMMARY PATIENT ARRIVED TO UNIT AT 0925 ON 2LPM NASAL CANULA SATTING 94% OR HIGHER. HE DESATS QUICKLY WHEN SLEEPING DOWN TO 84% AT TIMES. OXYGEN INCREASED TO 3LPM DUE TO PATIENT DROWSY FROM NOT SLEEPING LAST NIGHT. HE DECLINES WANTING SLEEP STUDY WHILE HERE IN HOSPITAL. HE IS UP INDEPENDENT IN THE ROOM. BED IN LOW POSITION, CALL LIGHT IN REACH. HE IS ABLE TO MAKE NEEDS KNOWN.
[2023-12-09] MEDS ORDERED: Insulin Glargine-Yfgn 100 Unit/mL 3 ML SYR SC SCH (21:00)
[2023-12-10 03:01] VITALS: BP 128/81
[2023-12-10] MEDS ORDERED: NS 250 ML IV PRN (04:15)
--- NOTE | 2023-12-10 04:47 | NUR ---
SHIFT SUMMARY PT A&OX4 AND PLEASANT. NO C/O PAIN. PT ON 3L OF OXYGEN AT START OF SHIFT. DURING THE NIGHT PT'S O2 SATS DROPPED TO THE LOW 70'S D/T MOUTH BREATHING AND HOLDING BREATH WHILE SLEEPING. WHEN PT WAS AWAKEND AND ASKED TO TAKE A COUPLE DEEP BREATHS, O2 SATS INCREASED TO THE 90's. PT WAS UNABLE TO TOLERATE A NON REBREATHER BUT RT WAS ABLE TO PLACE AN OXY MASK ON PT TO PROVIDE OXYGEN EVEN WHEN BREATHING THROUGH MOUTH. PT TOLERATED MASK WELL AND O2 SATS IMPROVED EXCEPT WHEN PT APPEARED TO HOLD BREATH FOR SHORT PERIODS OF TIME WHILD SLEEPING. O2 INCREASED TO 4L/MIN DURING SLEEP. VSS. BED IN LOWEST POSITION AND CALL LIGHT IN REACH.
[2023-12-10 05:09] LABS: Hematocrit 41.1 % (37.0-53.0); Hemoglobin 13.4 g/dL (13.5-17.5); Mean Corpuscular HGB 30.2 pg (26.0-34.0); Mean Corpuscular HGB Conc 32.6 g/dL (31.5-36.5); Mean Corpuscular Volume 93 fL (80-100); Mean Platelet Volume 10.5 fL (9.1-12.4); Platelet Count 155 K/mm3 (150-400); RDW Coefficient Variation 13.1 % (11.7-14.2); RDW Standard Deviation 44.8 fL (35.1-46.3); Red Blood Cell Count 4.44 M/mm3 (4.30-5.90); White Blood Cell Count 4.45 K/mm3 (4.00-11.30)
[2023-12-10 05:44] LABS: BAND PERCENT MAN 5 % (0-8); BASOPHILS PERCENT MAN 0 % (0-2); EOSINOPHILS ABSOLUTE MAN 0.22 K/mm3 (0.00-0.68); EOSINOPHILS PERCENT MAN 5 % (0-6); LYMPHOCYTES % ATYPICAL MANUAL 2 % (0-0); LYMPHOCYTES ABSOLUTE MAN 1.91 K/mm3 (0.84-5.20); LYMPHOCYTES PERCENT MAN 41 % (21-46); MONOCYTES ABSOLUTE MAN 0.13 K/mm3 (0.16-1.47); MONOCYTES PERCENT MAN 3 % (4-13); NEUTROPHILS ABSOLUTE MAN 2.18 K/mm3 (1.96-9.15); SEG NEUTROPHILS PERCENT MAN 44 % (41-73); TOTAL CELLS COUNTED 100
[2023-12-10 05:49] LABS: Albumin, Blood 3.4 g/dL (3.4-5.0); Albumin/Globulin Ratio 0.8 (0.8-1.8); Bilirubin, Total 0.3 mg/dL (0.1-1.0); Bun/Creatinine Ratio 19.6 (12.0-20.0); Calcium, Blood 9.3 mg/dL (8.5-10.1); Creatinine, Blood 0.66 mg/dL (0.60-1.20); Globulin, Blood 4.3 g/dL (2.2-4.0); Potassium, Blood 4.5 mmol/L (3.5-5.5); Total Protein, Blood 7.7 g/dL (6.4-8.2)
[2023-12-10 07:52] VITALS: BP 130/87
[2023-12-10] MEDS ORDERED: Enoxaparin 40 MG/0.4 ML SYR SC SCH (09:00)
[2023-12-10] MEDS ORDERED: CefTRIAXone Sodium 1,000 MG in NS 100 ML IV SCH (09:00)
[2023-12-10] MEDS ORDERED: Azithromycin 500 MG in NS 250 ML IV SCH (09:00)
[2023-12-10] MEDS ORDERED: FLUT.05NI (14:22)
--- NOTE | 2023-12-10 16:28 | NUR ---
PT DISCHARGED AT 1600. ALL PAPERWORK REVIEWED AND EDUCATIONAL MATERIAL SENT WITH HIM. PT HAD OXYGEN TANK DROPPED OFF PRIOR TO DISCHARGE. ALL PERSONAL BELONINGS WERE COLLECTED AND TAKEN WITH PT. JOJO ARRANGED FOR A RIDE FOR PT TO BE TAKEN HOME. THIS HAIRCUTTER ESCORTED PT OUT VIA WHEEL CHAIR.
== END 2023-12-10 15:59 | disposition home or self-care (01) ==
LOC: ER 22:20 → MEDS 12-09 06:23
PROVIDERS: Internal Medicine; Student in an Organized Health Care Education/Training Program; ADMIT Student in an Organized Health Care Education/Training Program
DX: J96.01 Acute respiratory failure with hypoxia (principal); J20.8 Acute bronchitis due to other specified organisms; B97.81 Human metapneumovirus as the cause of diseases classified elsewhere; E11.9 Type 2 diabetes mellitus without complications; F17.210 Nicotine dependence, cigarettes, uncomplicated; E66.01 Morbid (severe) obesity due to excess calories; Z79.4 Long term (current) use of insulin; Z79.899 Other long term (current) drug therapy; Z20.822 Contact with and (suspected) exposure to COVID-19
CPT/HCPCS: 0202U; 0241U; 36415; 71046; 71260; 80053; 82947; 83036; 83735; 83880; 84145; 84484; 85025; 85379; 87070; 87205; 93005; 93010; 94640; 94664; 94761; 94762; 96365-59; 96366; 96368; 96375-59; 99285-25; A9270; G0378; J0456; J0696; J1650; J1815; J1885; J1940; J7050; Q9967

== ENCOUNTER 2024-01-29 09:35 | Inpatient (IN) | payer BC, OTHER ==
[~2024-01-29] VITALS: Ht 182.9 cm; Wt 171.6 kg
[~2024-01-29 09:35] MED LIST changes: +ATOR20 PO; +FLUT.05NI; +INSULANI SC; +METF500 PO; +Prinivil10 MG PO
[2024-01-29 10:21] LABS: BASOPHILS ABSOLUTE AUTO 0.04 K/mm3 (0.00-0.23); BASOPHILS PERCENT AUTO 0 % (0-2); EOSINOPHILS PERCENT AUTO 0 % (0-6); Hematocrit 41.1 % (37.0-53.0); Hemoglobin 13.7 g/dL (13.5-17.5); IMMATURE GRAN ABSOLUTE AUTO 0.15 K/mm3 (0.00-0.10); IMMATURE GRAN PERCENT AUTO 1 % (0-1); LYMPHOCYTES ABSOLUTE AUTO 0.93 K/mm3 (0.84-5.20); LYMPHOCYTES PERCENT AUTO 6 % (21-46); MONOCYTES ABSOLUTE AUTO 0.65 K/mm3 (0.16-1.47); MONOCYTES PERCENT AUTO 4 % (4-13); Mean Corpuscular HGB 29.8 pg (26.0-34.0); Mean Corpuscular HGB Conc 33.3 g/dL (31.5-36.5); Mean Corpuscular Volume 90 fL (80-100); Mean Platelet Volume 10.4 fL (9.1-12.4); NEUTROPHILS ABSOLUTE AUTO 13.77 K/mm3 (1.96-9.15); NEUTROPHILS PERCENT AUTO 89 % (41-73); Platelet Count 152 K/mm3 (150-400); RDW Coefficient Variation 13.1 % (11.7-14.2); RDW Standard Deviation 42.6 fL (35.1-46.3); Red Blood Cell Count 4.59 M/mm3 (4.30-5.90); White Blood Cell Count 15.54 K/mm3 (4.00-11.30)
[2024-01-29 10:42] LABS: Albumin, Blood 3.6 g/dL (3.4-5.0); Albumin/Globulin Ratio 0.8 (0.8-1.8); Bilirubin, Total 0.4 mg/dL (0.1-1.0); Bun/Creatinine Ratio 13.5 (12.0-20.0); Calcium, Blood 8.9 mg/dL (8.5-10.1); Creatinine, Blood 0.89 mg/dL (0.60-1.20); Globulin, Blood 4.4 g/dL (2.2-4.0)
[2024-01-29] MEDS ORDERED: Vancomycin HCL 2,000 MG in NS 270 ML IV ONE (12:05)
[2024-01-29] MEDS ORDERED: Morphine Sulfate 4 MG/1 ML Injection IV ONE (12:05)
[2024-01-29] MEDS ORDERED: NS 1,000 ML IV SCH ×2 (12:10→16:00)
[2024-01-29] MEDS ORDERED: DOXY100 PO (15:02)
[2024-01-29] MEDS ORDERED: OxyCODONE HCL 5 MG TAB PO PRN (19:45)
[2024-01-29] MEDS ORDERED: Lactated Ringer's 1,000 ML IV SCH (19:45)
[2024-01-29] MEDS ORDERED: Ondansetron HCl 2 MG / ML 2ML Vial IV PRN (19:45)
[2024-01-29] MEDS ORDERED: Acetaminophen 325 MG TABLET PO PRN (19:45)
[2024-01-29] MEDS ORDERED: Lactated Ringer's 1,000 ML IV ONE ×2 (19:52→20:00)
[2024-01-29] MEDS ORDERED: CeFAZolin Sodium 3,000 MG in NS 100 ML IV SCH (20:00)
[2024-01-29] MEDS ORDERED: Lactobacil 2-S.Thermo-Bifido 1 1 Cap PO SCH (21:00)
[2024-01-29] MEDS ORDERED: Insulin Glargine-Yfgn 100 Unit/mL 3 ML SYR SC SCH (21:00)
[2024-01-29] MEDS ORDERED: Atorvastatin 10 MG Tab PO SCH (21:00)
[2024-01-29 21:27] VITALS: BP 154/99
[2024-01-29] MEDS ORDERED: Ketorolac Tromethamine 30mg Vial IV ONE (23:00)
[2024-01-29] MEDS ORDERED: Ketorolac Tromethamine 30mg Vial IV PRN (23:00)
[2024-01-29 23:56] VITALS: BP 99/69
[2024-01-30 04:50] VITALS: BP 143/94
[2024-01-30 05:38] LABS: BASOPHILS ABSOLUTE AUTO 0.02 K/mm3 (0.00-0.23); BASOPHILS PERCENT AUTO 0 % (0-2); EOSINOPHILS PERCENT AUTO 0 % (0-6); Hemoglobin 12.4 g/dL (13.5-17.5); IMMATURE GRAN ABSOLUTE AUTO 0.19 K/mm3 (0.00-0.10); IMMATURE GRAN PERCENT AUTO 1 % (0-1); LYMPHOCYTES ABSOLUTE AUTO 1.13 K/mm3 (0.84-5.20); LYMPHOCYTES PERCENT AUTO 8 % (21-46); MONOCYTES ABSOLUTE AUTO 0.67 K/mm3 (0.16-1.47); MONOCYTES PERCENT AUTO 5 % (4-13); Mean Corpuscular HGB 29.9 pg (26.0-34.0); Mean Corpuscular HGB Conc 33.5 g/dL (31.5-36.5); Mean Corpuscular Volume 89 fL (80-100); Mean Platelet Volume 10.3 fL (9.1-12.4); NEUTROPHILS PERCENT AUTO 86 % (41-73); Platelet Count 122 K/mm3 (150-400); RDW Coefficient Variation 13.6 % (11.7-14.2); RDW Standard Deviation 44.7 fL (35.1-46.3); Red Blood Cell Count 4.15 M/mm3 (4.30-5.90); White Blood Cell Count 14.11 K/mm3 (4.00-11.30)
[2024-01-30 06:15] LABS: Albumin, Blood 2.9 g/dL (3.4-5.0); Albumin/Globulin Ratio 0.6 (0.8-1.8); Bilirubin, Total 0.5 mg/dL (0.1-1.0); Bun/Creatinine Ratio 18.5 (12.0-20.0); Calcium, Blood 8.8 mg/dL (8.5-10.1); Creatinine, Blood 0.59 mg/dL (0.60-1.20); Globulin, Blood 4.5 g/dL (2.2-4.0); Total Protein, Blood 7.4 g/dL (6.4-8.2)
--- NOTE | 2024-01-30 06:25 | NUR ---
SHIFT SUMMARY PATIENT ARRIVED TO PCU VIA STRETCHER, WAS ABLE TO SELF TRANSFER TO THE BED WITH MINIMAL ASSIST FOR LINE MANAGEMENT. PATIENT ALERT AND ORIENTED X4. WAS MEDICATED PER EMAR FOR PAIN. HAD NO COMPLAINTS OF SHORTNESS OF BREATH, HAS A HISTORY OF OBSTRUCTIVE SLEEP APNEA AND REPORTS THAT HE WAS SUPPOSED TO BE PICKING UP A NEW CPAP TODAY BUT ENDED UP IN THE HOSPITAL. PATIENT WAS PLACED ON CPAP FOR SLEEP AND DID NOT TOLERATE IT DUE TO FEELING LIKE HE COULDN'T BREATHE, PLACED ON 3 LITERS O2 VIA SIMPLE MASK INSTEAD HE DESATS WHILE SLEEPING. VITAL SIGNS STABLE, SINUS RHYTHM ON TELE. NO ACUTE ISSUES NOTED OVERNIGHT. WILL CONTINUE TO MONITOR. CALL LIGHT WITHIN REACH.
[2024-01-30] MEDS ORDERED: Insulin Human Lispro 100 Units/ML 3ML Syringe SC SCH (07:30)
[2024-01-30 07:36] VITALS: BP 150/94
[2024-01-30] MEDS ORDERED: Lisinopril 5 MG Tab PO SCH (09:00)
[2024-01-30] MEDS ORDERED: Enoxaparin 40 MG/0.4 ML SYR SC SCH (09:00)
[2024-01-30 11:11] VITALS: BP 100/62
[2024-01-30 15:36] VITALS: BP 113/80
--- NOTE | 2024-01-30 17:25 | NUR ---
Shift Summary Pt alert, oriented x4; calm and cooperative with care. Pt up with sba in room, up in recliner for meals. Pt reports pain to lle, medicated per emar, pt encouraged to elevate. Pt denies sob, spo2 >90% on ra while awake and on 3l o2 while sleeping. Tele sinus tach 100-110's, bp trending down. Edema ble L>R. Abd distended, nontender, +bt t/o. Other vss. No other acute changes noted. Will continue to monitor.
[2024-01-30 19:47] VITALS: BP 132/80
[2024-01-30 22:59] VITALS: BP 151/95
--- NOTE | 2024-01-31 00:13 | NUR ---
PT IS ALERT AND ORIENTED X 4, COOPERATIVE WITH CARE AND ABLE TO MAKE NEED KNOWN. PT ON 3L W/MASK AND MAINTAINING 02 SATURTAION ABOVE 92%, HE DENIES SOB AT THIS TIME. HR ST 110'S AND HE DENIES CHEST PAIN OR PRESSURE. BP STABLE. PT ABLE TO USE URINAL INDEPENDENTLY. CELLULITIS NOTED TO L LEG, REDNESS AND SWELLING. PT C/O PAIN IN L LEG, MEDICATED PER EMAR. PT COMPLAINED OF BEING COLD, TEMPERATURE CHECKED AND TEMP WAS 100.4. PT WAS MEDICATED PER EMAR AND COOL RAG APPLIED TO FOREHEAD, TEMP NOW 99.4. IV TO L HAND PATENT AND INFUSING PER EMAR. CURRENTLY PT WATCHING TV IN ROOM AND RESTING, CALL LIGHT WITHIN REACH.
[2024-01-31 03:50] VITALS: BP 133/91
[2024-01-31 04:17] LABS: BASOPHILS ABSOLUTE AUTO 0.03 K/mm3 (0.00-0.23); BASOPHILS PERCENT AUTO 0 % (0-2); EOSINOPHILS ABSOLUTE AUTO 0.05 K/mm3 (0.00-0.68); EOSINOPHILS PERCENT AUTO 1 % (0-6); Hemoglobin 11.4 g/dL (13.5-17.5); IMMATURE GRAN ABSOLUTE AUTO 0.06 K/mm3 (0.00-0.10); IMMATURE GRAN PERCENT AUTO 1 % (0-1); LYMPHOCYTES ABSOLUTE AUTO 1.37 K/mm3 (0.84-5.20); LYMPHOCYTES PERCENT AUTO 13 % (21-46); MONOCYTES ABSOLUTE AUTO 0.73 K/mm3 (0.16-1.47); MONOCYTES PERCENT AUTO 7 % (4-13); Mean Corpuscular HGB 29.9 pg (26.0-34.0); Mean Corpuscular HGB Conc 33.5 g/dL (31.5-36.5); Mean Corpuscular Volume 89 fL (80-100); Mean Platelet Volume 10.6 fL (9.1-12.4); NEUTROPHILS ABSOLUTE AUTO 7.99 K/mm3 (1.96-9.15); NEUTROPHILS PERCENT AUTO 78 % (41-73); Platelet Count 122 K/mm3 (150-400); RDW Coefficient Variation 13.4 % (11.7-14.2); RDW Standard Deviation 43.9 fL (35.1-46.3); Red Blood Cell Count 3.81 M/mm3 (4.30-5.90); White Blood Cell Count 10.23 K/mm3 (4.00-11.30)
[2024-01-31 04:37] LABS: Bun/Creatinine Ratio 14.6 (12.0-20.0); Calcium, Blood 8.6 mg/dL (8.5-10.1); Creatinine, Blood 0.62 mg/dL (0.60-1.20); Potassium, Blood 3.9 mmol/L (3.5-5.5)
--- NOTE | 2024-01-31 07:05 | NUR ---
NO ACUTE CHANGES, SEE PREVIOUS NOTE.
[2024-01-31 07:30] VITALS: BP 150/101
--- NOTE | 2024-01-31 07:48 | NUR ---
Am note Pt wakes easily to verbal stimuli, quickly falls back to sleep. Oriented x4; calm and cooperative with care. Pt up in recliner this am, plans to go back to bed after breakfast. Pt denies pain, chest pain/pressure, sob, nausea, dizziness and numb/tingling. Tele sinus tach 100's, bp elevated. Edema to ble, left worse than right; encouraged pt to elevate feet, pt states after breakfast. Spo2 >90% on 3l mask while sleeping. Abd distended, nontender, BT note t/o. Other vss. No other acute changes noted. Will continue to monitor.
[2024-01-31 11:43] VITALS: BP 132/94
[2024-01-31 15:35] VITALS: BP 149/84
[2024-01-31] MEDS ORDERED: NS 1,000 ML IV SCH (16:00)
--- NOTE | 2024-01-31 18:39 | NUR ---
SHIFT SUMMARY NO ACUTE CHANGES NOTED T/O SHIFT. PT APPEARS TO BE SLEEPING FOR MAJORITY OF SHIFT, WAKES EASILY TO VERBAL STIMULI. VSS. NO OTHER ACUTE CHANGES NOTED. WILL CONTINUE TO MONITOR.
[2024-01-31 20:12] VITALS: BP 132/67
[2024-01-31 23:34] VITALS: BP 156/98
[2024-02-01 03:47] LABS: BASOPHILS ABSOLUTE AUTO 0.03 K/mm3 (0.00-0.23); BASOPHILS PERCENT AUTO 0 % (0-2); EOSINOPHILS ABSOLUTE AUTO 0.04 K/mm3 (0.00-0.68); EOSINOPHILS PERCENT AUTO 0 % (0-6); Hematocrit 34.2 % (37.0-53.0); Hemoglobin 11.4 g/dL (13.5-17.5); IMMATURE GRAN ABSOLUTE AUTO 0.11 K/mm3 (0.00-0.10); IMMATURE GRAN PERCENT AUTO 1 % (0-1); LYMPHOCYTES ABSOLUTE AUTO 1.57 K/mm3 (0.84-5.20); LYMPHOCYTES PERCENT AUTO 15 % (21-46); MONOCYTES ABSOLUTE AUTO 0.86 K/mm3 (0.16-1.47); MONOCYTES PERCENT AUTO 8 % (4-13); Mean Corpuscular HGB 29.5 pg (26.0-34.0); Mean Corpuscular HGB Conc 33.3 g/dL (31.5-36.5); Mean Corpuscular Volume 88 fL (80-100); Mean Platelet Volume 10.7 fL (9.1-12.4); NEUTROPHILS ABSOLUTE AUTO 7.68 K/mm3 (1.96-9.15); NEUTROPHILS PERCENT AUTO 75 % (41-73); Platelet Count 147 K/mm3 (150-400); RDW Coefficient Variation 13.2 % (11.7-14.2); RDW Standard Deviation 42.8 fL (35.1-46.3); Red Blood Cell Count 3.87 M/mm3 (4.30-5.90); White Blood Cell Count 10.29 K/mm3 (4.00-11.30)
[2024-02-01 04:06] VITALS: BP 167/104
[2024-02-01 04:06] LABS: Bun/Creatinine Ratio 12.4 (12.0-20.0); Calcium, Blood 8.7 mg/dL (8.5-10.1); Creatinine, Blood 0.48 mg/dL (0.60-1.20); Potassium, Blood 3.7 mmol/L (3.5-5.5)
--- NOTE | 2024-02-01 06:39 | NUR ---
NO ACUTE CHANGES OVERNIGHT. NEURO PATIENT IS A&O X4. CARDIAC PATIENT HAS BEEN ST IN THE 100-110S. RESP PATIENT HAS BEEN ON 3L SIMPLE MASK. PATIENT VOIDING USING URINAL. NO BM OVERNIGHT. PATIENT RECEIVNG ANTIBIOTICS. L LEG SWOLLEN.
[2024-02-01 07:27] VITALS: BP 141/98
[2024-02-01] MEDS ORDERED: Furosemide 10 MG/ML 4ML Vial IV SCH (10:00)
[2024-02-01 11:41] VITALS: BP 142/105
[2024-02-01] MEDS ORDERED: SULTRIDS PO (12:21)
[2024-02-01] MEDS ORDERED: PROBIOTIC1 EA13 PO (12:28)
--- NOTE | 2024-02-01 13:42 | NUR ---
DISCHARGE SUMMARY PT ALERT, ORIENTED X4; CALM AND COOPERATIVE WITH CARE. PT RESTING IN BED, UP WITH SBA IN ROOM. PT REPORTING DISCOMFORT TO LEFT LEG, PT ASKING FOR HEATING PAD, PROVIDED PT WITH HEATING PAD. PT DENIES CHEST PAIN/PRESSURE, SOB, NAUSEA, DIZZINESS AND NUMB/TINGLING. TELE SINUS/SINUS TACH 90-100'S, BP ELEVATED, PLANS TO INCREASE PT LISINOPRIL AT HOME. SPO2 >90% ON RA, 3L WHILE SLEEPING; PT ENCOURAGED TO GO AND FASHION ADVISER CPAP AND WEAR IT. ABD DISTENED, NORMAL FOR PATIENT, SOFT, NONTENDER, NO BM SINCE ADMISSION, MD NOTIFIED. EDEMA TO BLE, LEFT WORSE THAN RIGHT, NOT WORSENED OVER NIGHT. OTHER VSS. NO OTHER ACUTE CHANGES NOTED. WILL CONTINUE TO MONITOR.
== END 2024-02-01 13:18 | disposition home or self-care (01) | DRG 872 ==
LOC: ER 09:35 → PCU 19:39
PROVIDERS: Emergency Medicine; Family Medicine; Family Medicine Adult Medicine; Nurse Practitioner Acute Care; ADMIT Internal Medicine
DX: A41.9 Sepsis, unspecified organism (principal); E87.1 Hypo-osmolality and hyponatremia; L03.116 Cellulitis of left lower limb; Z68.43 Body mass index [BMI] 50.0-59.9, adult; I82.812 Embolism and thrombosis of superficial veins of left lower extremity; D64.9 Anemia, unspecified; E78.5 Hyperlipidemia, unspecified; I10 Essential (primary) hypertension; E66.01 Morbid (severe) obesity due to excess calories; F17.210 Nicotine dependence, cigarettes, uncomplicated; G47.33 Obstructive sleep apnea (adult) (pediatric); E11.9 Type 2 diabetes mellitus without complications; D69.6 Thrombocytopenia, unspecified; I87.2 Venous insufficiency (chronic) (peripheral); Z86.718 Personal history of other venous thrombosis and embolism; Z98.890 Other specified postprocedural states; Z79.4 Long term (current) use of insulin
CPT/HCPCS: 36415; 80048; 80053; 82947; 83605; 85025; 87040; 93005; 93010; 93971; 94660; 94762; 96361; 96365; 96366; 96375; 99284-25; A9270; J0690; J1650; J1815; J1885; J1940; J2270; J3370; J7030; J7050; J7120

== ENCOUNTER 2024-04-07 12:33 | Inpatient (IN) | payer BC, OTHER ==
[~2024-04-07] VITALS: Ht 182.9 cm; Wt 161.0 kg
[~2024-04-07 12:33] MED LIST changes: +DOXY100 PO; +PROBIOTIC1 EA13 PO; +SULTRIDS PO
[2024-04-07 13:04] LABS: BASOPHILS ABSOLUTE AUTO 0.03 K/mm3 (0.00-0.23); BASOPHILS PERCENT AUTO 0 % (0-2); EOSINOPHILS PERCENT AUTO 0 % (0-6); Hematocrit 37.6 % (37.0-53.0); Hemoglobin 12.5 g/dL (13.5-17.5); IMMATURE GRAN ABSOLUTE AUTO 0.05 K/mm3 (0.00-0.10); IMMATURE GRAN PERCENT AUTO 0 % (0-1); LYMPHOCYTES ABSOLUTE AUTO 0.85 K/mm3 (0.84-5.20); LYMPHOCYTES PERCENT AUTO 7 % (21-46); MONOCYTES ABSOLUTE AUTO 0.64 K/mm3 (0.16-1.47); MONOCYTES PERCENT AUTO 5 % (4-13); Mean Corpuscular HGB 30.2 pg (26.0-34.0); Mean Corpuscular HGB Conc 33.2 g/dL (31.5-36.5); Mean Corpuscular Volume 91 fL (80-100); NEUTROPHILS ABSOLUTE AUTO 11.22 K/mm3 (1.96-9.15); NEUTROPHILS PERCENT AUTO 88 % (41-73); Platelet Count 172 K/mm3 (150-400); RDW Coefficient Variation 14.2 % (11.7-14.2); RDW Standard Deviation 47.2 fL (35.1-46.3); Red Blood Cell Count 4.14 M/mm3 (4.30-5.90); White Blood Cell Count 12.79 K/mm3 (4.00-11.30)
[2024-04-07 13:29] LABS: Albumin, Blood 3.1 g/dL (3.4-5.0); Albumin/Globulin Ratio 0.6 (0.8-1.8); Bilirubin, Total 0.4 mg/dL (0.1-1.0); Bun/Creatinine Ratio 13.2 (12.0-20.0); Calcium, Blood 8.8 mg/dL (8.5-10.1); Creatinine, Blood 0.76 mg/dL (0.60-1.20); Globulin, Blood 5.4 g/dL (2.2-4.0); Potassium, Blood 4.1 mmol/L (3.5-5.5); Total Protein, Blood 8.5 g/dL (6.4-8.2)
[2024-04-07] MEDS ORDERED: Vancomycin HCL 2,000 MG in NS 520 ML IV ONE (15:15)
[2024-04-07] MEDS ORDERED: NS 1,000 ML IV SCH (15:15)
[2024-04-07] MEDS ORDERED: Ondansetron HCl 2 MG / ML 2ML Vial IV PRN (18:25)
[2024-04-07] MEDS ORDERED: OxyCODONE HCL 5 MG TAB PO PRN (18:25)
[2024-04-07] MEDS ORDERED: Acetaminophen 325 MG TABLET PO PRN (18:25)
[2024-04-07] MEDS ORDERED: Lactated Ringer's 1,000 ML IV SCH (18:25)
[2024-04-07] MEDS ORDERED: Acetaminophen 500 MG Tab PO ONE (19:00)
[2024-04-07] MEDS ORDERED: Ketorolac Tromethamine 15mg Vial IV PRN (19:20)
[2024-04-07] MEDS ORDERED: CeFAZolin Sodium 3,000 MG in NS 100 ML IV SCH (20:00)
[2024-04-07 20:59] VITALS: BP 113/72
[2024-04-07] MEDS ORDERED: Insulin Glargine-Yfgn 100 Unit/mL 3 ML SYR SC SCH (21:00)
[2024-04-07] MEDS ORDERED: Lactobacil 2-S.Thermo-Bifido 1 1 Cap PO SCH (21:00)
--- NOTE | 2024-04-07 21:02 | NUR ---
ADMISSSION: PATIENT WAS REIEVED FROM ER VIA WHEELCHAIR. VSS, TEMP. HAS RESOLVED WITH TYLENOL, HR STILL 120'S. PATIENT REPORTS PAIN IN LEFT ANKLE 4/10. SNACK IS GIVEN PER PATIENT REQUEST. NO SMOKING POLICY WAS REVIEWED. PATIENT VERBALIZES UNDERSTANDING.
[2024-04-07] MEDS ORDERED: NS 250 ML IV PRN (21:20)
[2024-04-07] MEDS ORDERED: FUROSEMIDE20 MG PO (22:31)
[2024-04-07] MEDS ORDERED: Chantix1 MG PO (22:34)
[2024-04-08 02:39] VITALS: BP 123/72
--- NOTE | 2024-04-08 05:08 | NUR ---
SHIFT SUMMARY: PATIENT WAS TACHYCARDIC AND HAD A TEMP. WHEN HE ARRIVED ON UNIT. TACHYCARDIA IMPROVED FRO 120'S TO 105 TEMP RESOLVED. PATIENT DECLINES ONE OF OUR CPAP'S. WILL ASK ROOM MOTE TO BRING HIS FROM HOME. CONTINUOS PULSE OX IS IN PLACE. PATIENT INTIALLY DESATED TO 80%, 1.5 L WAS APPLIED. PATIENT HAS SERVERE OPHELIA, NOT TOLERATING HIS CPAP AT HOME. 02 WAS TITRATED UP TO 2L. PATIENT IS VOIDING WITHOUT DIFFICULTY.
[2024-04-08 05:50] LABS: BASOPHILS ABSOLUTE AUTO 0.02 K/mm3 (0.00-0.23); BASOPHILS PERCENT AUTO 0 % (0-2); EOSINOPHILS ABSOLUTE AUTO 0.02 K/mm3 (0.00-0.68); EOSINOPHILS PERCENT AUTO 0 % (0-6); Hematocrit 34.1 % (37.0-53.0); Hemoglobin 11.2 g/dL (13.5-17.5); IMMATURE GRAN ABSOLUTE AUTO 0.08 K/mm3 (0.00-0.10); IMMATURE GRAN PERCENT AUTO 1 % (0-1); LYMPHOCYTES ABSOLUTE AUTO 1.24 K/mm3 (0.84-5.20); LYMPHOCYTES PERCENT AUTO 11 % (21-46); MONOCYTES ABSOLUTE AUTO 0.72 K/mm3 (0.16-1.47); MONOCYTES PERCENT AUTO 7 % (4-13); Mean Corpuscular HGB 29.8 pg (26.0-34.0); Mean Corpuscular HGB Conc 32.8 g/dL (31.5-36.5); Mean Corpuscular Volume 91 fL (80-100); Mean Platelet Volume 10.7 fL (9.1-12.4); NEUTROPHILS ABSOLUTE AUTO 8.95 K/mm3 (1.96-9.15); NEUTROPHILS PERCENT AUTO 81 % (41-73); Platelet Count 149 K/mm3 (150-400); RDW Coefficient Variation 14.6 % (11.7-14.2); RDW Standard Deviation 48.4 fL (35.1-46.3); Red Blood Cell Count 3.76 M/mm3 (4.30-5.90); White Blood Cell Count 11.03 K/mm3 (4.00-11.30)
[2024-04-08 06:22] LABS: Bun/Creatinine Ratio 15.8 (12.0-20.0); Calcium, Blood 8.7 mg/dL (8.5-10.1); Creatinine, Blood 0.7 mg/dL (0.60-1.20); Potassium, Blood 3.8 mmol/L (3.5-5.5)
[2024-04-08] MEDS ORDERED: Insulin Human Lispro 100 Units/ML 3ML Syringe SC SCH (07:30)
[2024-04-08 07:55] VITALS: BP 125/92
[2024-04-08] MEDS ORDERED: Enoxaparin 40 MG/0.4 ML SYR SC SCH (09:00)
[2024-04-08] MEDS ORDERED: Atorvastatin 10 MG Tab PO SCH (09:00)
[2024-04-08] MEDS ORDERED: Lisinopril 10 MG Tab PO SCH (09:00)
[2024-04-08 15:09] VITALS: BP 135/90
[2024-04-08] MEDS ORDERED: CeFAZolin Sodium 1,000 MG in NS 50 ML IV SCH (17:00)
--- NOTE | 2024-04-08 18:57 | NUR ---
SHIFT SUMMARY PATIENT ALERT AND ORIENTED. PATIENT KEEPING LEG ELEVATED AND RESTING IN BED. PATIENT MEDICATED FOR PAIN NEEDED. PATIENT ABLE TO MAKE NEEDS KNOWN AND ABLE TO USE URINAL INDEPENDENTLY. DRESSING OVER L ANKLE INTACT. CONTINUE IV ANTIBIOTICS AT THIS TIME.
[2024-04-08 19:21] VITALS: BP 121/79
[2024-04-09 02:07] VITALS: BP 109/69
[2024-04-09 07:32] VITALS: BP 141/90
[2024-04-09 14:45] VITALS: BP 133/85
--- NOTE | 2024-04-09 17:37 | NUR ---
SHIFT SUMMARY: PT ON ROOM AIR AND INDEPENDENT TO BATHROOM. IV NOT PATENT SO NEW IV PLACED LEFT HAND 20G. BANDAGE ON LEFT ANKLE REPLACED. GOT CLOTHES FROM A FRIEND AND TOOK A SHOWER. SAT UP IN CHAIR AND AFTER A WHILE LEFT LEG SWELLED UP MORE, WAS HOT AND HARD TO THE TOUCH. PT AMBULATED BACK TO BED AND LEG ELEVATED WHICH HELPED. PT COMPLAINED OF PAIN AND FEELING CHILLS/ FEVERISH. TEMP: 99 TYLENOL AND OXYCODONE GIVEN. PATIENT IN GOOD MOOD, PLEASANT AFFECT, AND COMPLIANT. CONTINUING ANTIBIOTICS.
[2024-04-09 19:26] VITALS: BP 127/74
[2024-04-10 02:45] VITALS: BP 142/87
[2024-04-10 05:12] LABS: BASOPHILS ABSOLUTE AUTO 0.02 K/mm3 (0.00-0.23); BASOPHILS PERCENT AUTO 0 % (0-2); EOSINOPHILS ABSOLUTE AUTO 0.17 K/mm3 (0.00-0.68); EOSINOPHILS PERCENT AUTO 2 % (0-6); Hematocrit 31.9 % (37.0-53.0); Hemoglobin 10.5 g/dL (13.5-17.5); IMMATURE GRAN ABSOLUTE AUTO 0.04 K/mm3 (0.00-0.10); IMMATURE GRAN PERCENT AUTO 1 % (0-1); LYMPHOCYTES ABSOLUTE AUTO 1.55 K/mm3 (0.84-5.20); LYMPHOCYTES PERCENT AUTO 18 % (21-46); MONOCYTES ABSOLUTE AUTO 0.81 K/mm3 (0.16-1.47); MONOCYTES PERCENT AUTO 10 % (4-13); Mean Corpuscular HGB 29.9 pg (26.0-34.0); Mean Corpuscular HGB Conc 32.9 g/dL (31.5-36.5); Mean Corpuscular Volume 91 fL (80-100); Mean Platelet Volume 10.5 fL (9.1-12.4); NEUTROPHILS ABSOLUTE AUTO 5.94 K/mm3 (1.96-9.15); NEUTROPHILS PERCENT AUTO 70 % (41-73); Platelet Count 152 K/mm3 (150-400); RDW Coefficient Variation 14.1 % (11.7-14.2); RDW Standard Deviation 47.1 fL (35.1-46.3); Red Blood Cell Count 3.51 M/mm3 (4.30-5.90); White Blood Cell Count 8.53 K/mm3 (4.00-11.30)
[2024-04-10 05:47] LABS: Bun/Creatinine Ratio 12.3 (12.0-20.0); Calcium, Blood 8.9 mg/dL (8.5-10.1); Creatinine, Blood 0.57 mg/dL (0.60-1.20); Potassium, Blood 3.9 mmol/L (3.5-5.5)
[2024-04-10 07:57] VITALS: BP 125/92
[2024-04-10 16:15] VITALS: BP 127/82
--- NOTE | 2024-04-10 18:38 | NUR ---
SHIFT SUMMARY: PT AOX4 WALKING, INTO AND OUT OF CHAIR, TO SHOWER, AND WALKING AROUND UNIT INDEPENDENTALLY. LEG PLACED IN DEPENDENT POSITION AND SWELLING REDUCED. CLOTHES CHANGED. MEDICATIONS TOLERATED WELL AND MEALS FINISHED TO COMPLETION. PATIENT IN GOOD MOOD, PLEASANT AFFECT, AND COMPLIANT WITH COMMANDS. VITALS ASSESSED ANTIBIOTICS CONTINUED.
[2024-04-10 19:30] VITALS: BP 137/88
[2024-04-11 04:41] VITALS: BP 129/86
[2024-04-11 04:51] LABS: BASOPHILS ABSOLUTE AUTO 0.03 K/mm3 (0.00-0.23); BASOPHILS PERCENT AUTO 0 % (0-2); EOSINOPHILS ABSOLUTE AUTO 0.15 K/mm3 (0.00-0.68); EOSINOPHILS PERCENT AUTO 2 % (0-6); Hematocrit 32.8 % (37.0-53.0); Hemoglobin 10.8 g/dL (13.5-17.5); IMMATURE GRAN ABSOLUTE AUTO 0.07 K/mm3 (0.00-0.10); IMMATURE GRAN PERCENT AUTO 1 % (0-1); LYMPHOCYTES ABSOLUTE AUTO 1.62 K/mm3 (0.84-5.20); LYMPHOCYTES PERCENT AUTO 22 % (21-46); MONOCYTES ABSOLUTE AUTO 0.71 K/mm3 (0.16-1.47); MONOCYTES PERCENT AUTO 10 % (4-13); Mean Corpuscular HGB 29.7 pg (26.0-34.0); Mean Corpuscular HGB Conc 32.9 g/dL (31.5-36.5); Mean Corpuscular Volume 90 fL (80-100); Mean Platelet Volume 9.6 fL (9.1-12.4); NEUTROPHILS ABSOLUTE AUTO 4.69 K/mm3 (1.96-9.15); NEUTROPHILS PERCENT AUTO 64 % (41-73); Platelet Count 178 K/mm3 (150-400); RDW Coefficient Variation 13.7 % (11.7-14.2); Red Blood Cell Count 3.64 M/mm3 (4.30-5.90); White Blood Cell Count 7.27 K/mm3 (4.00-11.30)
[2024-04-11 05:24] LABS: Bun/Creatinine Ratio 12.6 (12.0-20.0); Calcium, Blood 9.3 mg/dL (8.5-10.1); Creatinine, Blood 0.63 mg/dL (0.60-1.20); Potassium, Blood 3.8 mmol/L (3.5-5.5)
[2024-04-11 07:56] VITALS: BP 142/95
[2024-04-11 07:58] VITALS: BP 148/98
[2024-04-11 14:41] VITALS: BP 164/107
--- NOTE | 2024-04-11 18:01 | NUR ---
PATIENT A/OX4, UP INDEPENDENTLY IN ROOM. VSS, ON RA. WEARS CPAP AT HOME, BUT REFUSING TO USE HERE. 2LO2 AT NOC TO MAINTAIN SATS. 2 SMALL OPEN AREAS TO LLE NO LONGER DRAINING AND ARE OPEN TO AIR. CONTINENT OF BOWEL/BLADDER. TORADOL GIVEN X1 TO TREAT PAIN WITH STATED RELEIF. PLAN IS TO PLACE POWERGLIDE AND FINISH IV ABX AT ATC AT DISCHARGE. NO OTHER CONCERNS THIS SHIFT.
[2024-04-11 18:14] VITALS: BP 144/114
[2024-04-11 19:13] VITALS: BP 159/110
[2024-04-12 04:40] VITALS: BP 170/114
--- NOTE | 2024-04-12 05:55 | NUR ---
SHIFT SUMMARY PT A&OX4 AND ANSWERS QUESTIONS APPROPRIATELY. PT RECEIVED SCHEDULED MEDICATIONS. PT BP IS ELEVATED, PT DENIED ANY SYMPTOMS. PT HAS HX OF HIGH BP, PT MONITORED. REMAINING VSS. NO COMPLAINTS OF CP/PRESSURE OR SOB. PT SPENT MOST OF SHIFT IN BED WITH EYES CLOSED AND RESPIRATIONS EVEN AND UNLABORED. NO ACUTE EVENTS AT THIS TIME. PT LEFT IN A POSITION OF SAFETY WITH FALL PRECAUTIONS IN PLACE. PT INDEPENDENTLY REPOSITIONED. CALL LIGHT IN REACH
[2024-04-12 07:42] VITALS: BP 157/97
[2024-04-12] MEDS ORDERED: ACET325 PO (12:44)
[2024-04-12] MEDS ORDERED: CEFTRIAXONE2 G7 IV (12:46)
[2024-04-12] MEDS ORDERED: VISBIOME 112.51 EACH PO (12:48)
--- NOTE | 2024-04-12 13:41 | NUR ---
PT DISCHARGED WITH TRANSPORTATION SERVICES. ALL VALUABLES RETURNED AND SENT WITH THE PT.
== END 2024-04-12 13:23 | disposition home or self-care (01) | DRG 872 ==
LOC: ER 12:33 → ERHOLD 18:17 → MEDS 18:17 → ENPENDDIS 04-12 11:37 → MEDS 04-12 13:23
PROVIDERS: Family Medicine; Nurse Practitioner Acute Care; Physician Assistant; ADMIT Hospitalist
DX: A41.9 Sepsis, unspecified organism (principal); L03.116 Cellulitis of left lower limb; Z68.42 Body mass index [BMI] 45.0-49.9, adult; L97.329 Non-pressure chronic ulcer of left ankle with unspecified severity; E78.5 Hyperlipidemia, unspecified; I10 Essential (primary) hypertension; E66.01 Morbid (severe) obesity due to excess calories; G47.33 Obstructive sleep apnea (adult) (pediatric); I87.2 Venous insufficiency (chronic) (peripheral); F17.210 Nicotine dependence, cigarettes, uncomplicated; E11.621 Type 2 diabetes mellitus with foot ulcer; Z86.718 Personal history of other venous thrombosis and embolism
CPT/HCPCS: 36415; 73610; 80048; 80053; 82947; 83605; 85025; 87040; 93005; 93010; 93971; 94762; 96365; 96366; 99284-25; A9270; J0690; J1650; J1815; J1885; J3370; J7030; J7040; J7050; J7120

== ENCOUNTER 2024-04-13 03:34 | Day surgery (SDC) | payer BC, OTHER ==
[~2024-04-13 03:34] MED LIST changes: +CEFTRIAXONE2 G7 IV; +CefTRIAXone Sodium 2,000 MG in NS 100 ML IV SCH; +Chantix1 MG PO; +FUROSEMIDE20 MG PO
[2024-04-13 15:18] VITALS: BP 130/96
== END 2024-04-13 15:40 | disposition home or self-care (01) ==
LOC: ATC 03:34
DX: A41.9 Sepsis, unspecified organism (principal); L03.116 Cellulitis of left lower limb; I10 Essential (primary) hypertension; E78.5 Hyperlipidemia, unspecified; E11.9 Type 2 diabetes mellitus without complications; G47.33 Obstructive sleep apnea (adult) (pediatric); F17.210 Nicotine dependence, cigarettes, uncomplicated; E66.01 Morbid (severe) obesity due to excess calories; Z79.84 Long term (current) use of oral hypoglycemic drugs; Z79.4 Long term (current) use of insulin; Z79.899 Other long term (current) drug therapy
CPT/HCPCS: 96365; J0696

== ENCOUNTER 2024-04-14 15:34 | Day surgery (SDC) | payer BC, OTHER ==
[2024-04-14 15:44] VITALS: BP 123/77
== END 2024-04-14 16:08 | disposition home or self-care (01) ==
LOC: ATC 15:34
DX: L03.116 Cellulitis of left lower limb (principal); I10 Essential (primary) hypertension; E78.5 Hyperlipidemia, unspecified; E11.9 Type 2 diabetes mellitus without complications; G47.33 Obstructive sleep apnea (adult) (pediatric); F17.210 Nicotine dependence, cigarettes, uncomplicated; E66.01 Morbid (severe) obesity due to excess calories; Z79.4 Long term (current) use of insulin; Z79.84 Long term (current) use of oral hypoglycemic drugs; Z79.899 Other long term (current) drug therapy
CPT/HCPCS: 96365; J0696

== ENCOUNTER 2024-04-16 02:32 | Day surgery (SDC) | payer BC, OTHER ==
[~2024-04-16 02:32] MED LIST changes: -CefTRIAXone Sodium 2,000 MG in NS 100 ML IV SCH
[2024-04-16] MEDS ORDERED: CefTRIAXone Sodium 2,000 MG in NS 100 ML IV SCH (06:00)
[2024-04-16 16:27] VITALS: BP 132/83
== END 2024-04-16 16:39 | disposition home or self-care (01) ==
LOC: ATC 02:32
DX: A41.9 Sepsis, unspecified organism (principal); L03.116 Cellulitis of left lower limb; I10 Essential (primary) hypertension; E11.9 Type 2 diabetes mellitus without complications; E78.5 Hyperlipidemia, unspecified; G47.33 Obstructive sleep apnea (adult) (pediatric); Z79.4 Long term (current) use of insulin; Z79.899 Other long term (current) drug therapy
CPT/HCPCS: 96365; J0696

== ENCOUNTER 2024-04-18 01:23 | Day surgery (SDC) | payer BC, OTHER ==
[~2024-04-18 01:23] MED LIST changes: +CefTRIAXone Sodium 2,000 MG in NS 100 ML IV SCH
[2024-04-18 15:11] VITALS: BP 128/94
== END 2024-04-18 15:36 | disposition home or self-care (01) ==
LOC: ATC 01:23
DX: A41.9 Sepsis, unspecified organism (principal); L03.116 Cellulitis of left lower limb; E11.9 Type 2 diabetes mellitus without complications; I10 Essential (primary) hypertension; E78.5 Hyperlipidemia, unspecified; G47.33 Obstructive sleep apnea (adult) (pediatric); F17.210 Nicotine dependence, cigarettes, uncomplicated; E66.01 Morbid (severe) obesity due to excess calories; Z79.4 Long term (current) use of insulin; Z79.899 Other long term (current) drug therapy
CPT/HCPCS: 96365; J0696

== ENCOUNTER 2024-04-29 04:12 | Day surgery (SDC) | payer BC, OTHER ==
[~2024-04-29 04:12] MED LIST changes: -CefTRIAXone Sodium 2,000 MG in NS 100 ML IV SCH
[2024-04-29] MEDS ORDERED: Lidocaine HCl 4% Cream 5 GM ONE (11:32)
== END 2024-04-30 01:34 | disposition home or self-care (01) ==
LOC: WOUND 04:12
DX: E11.622 Type 2 diabetes mellitus with other skin ulcer (principal); L97.322 Non-pressure chronic ulcer of left ankle with fat layer exposed; F17.210 Nicotine dependence, cigarettes, uncomplicated; E66.01 Morbid (severe) obesity due to excess calories; I87.312 Chronic venous hypertension (idiopathic) with ulcer of left lower extremity; I87.2 Venous insufficiency (chronic) (peripheral); L03.116 Cellulitis of left lower limb
CPT/HCPCS: A9270

== ENCOUNTER 2024-05-03 02:40 | Day surgery (SDC) | payer BC, OTHER | END 2024-05-03 23:00 | disposition home or self-care (01) | LOC: WOUND 02:40 | DX: E11.622 Type 2 diabetes mellitus with other skin ulcer (principal); L97.322 Non-pressure chronic ulcer of left ankle with fat layer exposed; I87.312 Chronic venous hypertension (idiopathic) with ulcer of left lower extremity; I87.2 Venous insufficiency (chronic) (peripheral); L03.116 Cellulitis of left lower limb; Z72.0 Tobacco use ==

== ENCOUNTER 2024-05-06 01:42 | Day surgery (SDC) | payer BC, OTHER | END 2024-05-06 22:53 | disposition home or self-care (01) | LOC: WOUND 01:42 | DX: I87.312 Chronic venous hypertension (idiopathic) with ulcer of left lower extremity (principal); E11.622 Type 2 diabetes mellitus with other skin ulcer; L97.322 Non-pressure chronic ulcer of left ankle with fat layer exposed; I87.2 Venous insufficiency (chronic) (peripheral); L03.116 Cellulitis of left lower limb; Z72.0 Tobacco use ==

== ENCOUNTER 2024-05-13 03:40 | Day surgery (SDC) | payer BC, OTHER | END 2024-05-14 02:54 | disposition home or self-care (01) | LOC: WOUND 03:40 | DX: I87.312 Chronic venous hypertension (idiopathic) with ulcer of left lower extremity (principal); L97.322 Non-pressure chronic ulcer of left ankle with fat layer exposed; I10 Essential (primary) hypertension; E11.9 Type 2 diabetes mellitus without complications; G47.30 Sleep apnea, unspecified; F17.200 Nicotine dependence, unspecified, uncomplicated | CPT/HCPCS: G0463 ==

== ENCOUNTER 2024-12-09 22:38 | Emergency (ER) | payer BC, OTHER ==
[~2024-12-09] VITALS: Ht 182.9 cm; Wt 163.3 kg
[2024-12-09 23:36] LABS: BASOPHILS ABSOLUTE AUTO 0.03 K/mm3 (0.00-0.23); BASOPHILS PERCENT AUTO 0 % (0-2); EOSINOPHILS ABSOLUTE AUTO 0.01 K/mm3 (0.00-0.68); EOSINOPHILS PERCENT AUTO 0 % (0-6); Hematocrit 37.5 % (37.0-53.0); Hemoglobin 12.6 g/dL (13.5-17.5); IMMATURE GRAN ABSOLUTE AUTO 0.08 K/mm3 (0.00-0.10); IMMATURE GRAN PERCENT AUTO 1 % (0-1); LYMPHOCYTES ABSOLUTE AUTO 1.13 K/mm3 (0.84-5.20); LYMPHOCYTES PERCENT AUTO 9 % (21-46); MONOCYTES PERCENT AUTO 5 % (4-13); Mean Corpuscular HGB 29.4 pg (26.0-34.0); Mean Corpuscular HGB Conc 33.6 g/dL (31.5-36.5); Mean Corpuscular Volume 87 fL (80-100); NEUTROPHILS ABSOLUTE AUTO 10.31 K/mm3 (1.96-9.15); NEUTROPHILS PERCENT AUTO 85 % (41-73); Platelet Count 175 K/mm3 (150-400); RDW Coefficient Variation 13.3 % (11.7-14.2); RDW Standard Deviation 42.4 fL (35.1-46.3); Red Blood Cell Count 4.29 M/mm3 (4.30-5.90); White Blood Cell Count 12.16 K/mm3 (4.00-11.30)
[2024-12-09 23:58] LABS: Albumin/Globulin Ratio 0.5 (0.8-1.8); Bilirubin, Total 0.5 mg/dL (0.1-1.0); Bun/Creatinine Ratio 10.3 (12.0-20.0); Calcium, Blood 9.1 mg/dL (8.5-10.1); Creatinine, Blood 0.88 mg/dL (0.60-1.20); Globulin, Blood 5.5 g/dL (2.2-4.0); Potassium, Blood 3.7 mmol/L (3.5-5.5); Total Protein, Blood 8.5 g/dL (6.4-8.2)
[2024-12-10 03:38] VITALS: BP 116/77
[2024-12-10] MEDS ORDERED: CefTRIAXone Sodium 2,000 MG in NS 100 ML IV ONE (04:05)
[2024-12-10] MEDS ORDERED: Diphth,Pertuss(Acell),Tet Vac 0.5 ML VIAL IM ONE (04:05)
[2024-12-10] MEDS ORDERED: CEPH500 PO (04:08)
== END 2024-12-10 04:42 | disposition home or self-care (01) ==
LOC: ER 22:38
PROVIDERS: Student in an Organized Health Care Education/Training Program
DX: L03.116 Cellulitis of left lower limb (principal); D72.829 Elevated white blood cell count, unspecified; E11.65 Type 2 diabetes mellitus with hyperglycemia; G47.30 Sleep apnea, unspecified; I10 Essential (primary) hypertension; E78.5 Hyperlipidemia, unspecified; Z23 Encounter for immunization; F17.210 Nicotine dependence, cigarettes, uncomplicated; Z79.84 Long term (current) use of oral hypoglycemic drugs; Z79.899 Other long term (current) drug therapy
CPT/HCPCS: 80053; 83605; 85025; 90471; 90715; 93005; 93010; 93971; 96374; 99284; J0696

== ENCOUNTER 2025-02-13 23:14 | Emergency (ER) | payer BC, OTHER ==
[~2025-02-13] VITALS: Ht 182.9 cm; Wt 163.3 kg
[2025-02-13 23:49] LABS: BASOPHILS ABSOLUTE AUTO 0.04 K/mm3 (0.00-0.23); BASOPHILS PERCENT AUTO 0 % (0-2); EOSINOPHILS ABSOLUTE AUTO 0.32 K/mm3 (0.00-0.68); EOSINOPHILS PERCENT AUTO 3 % (0-6); Hematocrit 35.8 % (37.0-53.0); Hemoglobin 12.2 g/dL (13.5-17.5); IMMATURE GRAN ABSOLUTE AUTO 0.03 K/mm3 (0.00-0.10); IMMATURE GRAN PERCENT AUTO 0 % (0-1); LYMPHOCYTES ABSOLUTE AUTO 1.93 K/mm3 (0.84-5.20); LYMPHOCYTES PERCENT AUTO 17 % (21-46); MONOCYTES ABSOLUTE AUTO 0.90 K/mm3 (0.16-1.47); MONOCYTES PERCENT AUTO 8 % (4-13); Mean Corpuscular HGB Conc 34.1 g/dL (31.5-36.5); Mean Corpuscular Volume 89 fL (80-100); NEUTROPHILS ABSOLUTE AUTO 8.32 K/mm3 (1.96-9.15); NEUTROPHILS PERCENT AUTO 72 % (41-73); NRBC ABSOLUTE 0.00 K/mm3 (0.00-0.02); NRBC Auto 0.0 /100 WBC (0.0-0.2); Platelet Count 198 K/mm3 (150-400); RDW Coefficient Variation 13.6 % (11.7-14.2); RDW Standard Deviation 44.4 fL (35.1-46.3)
[2025-02-14 00:15] LABS: Alanine Aminotransfer (ALT/SGP 27.0 U/L (12-78); Albumin, Blood 3.2 g/dL (3.4-5.0); Albumin/Globulin Ratio 0.6 (0.8-1.8); Anion Gap 9.0 mmol/L (3-11); Aspartate Aminotrans (AST/SGOT 26.0 U/L (12-37); Bilirubin, Total 0.3 mg/dL (0.1-1.0); Blood Urea Nitrogen 28.0 mg/dL (8-24); CO2, Blood 26.0 mmol/L (21-32); Calcium, Blood 8.9 mg/dL (8.5-10.1); Chloride, Blood 100.0 mmol/L (98-108); Creatinine, Blood 1.1 mg/dL (0.60-1.20); Globulin, Blood 5.8 g/dL (2.2-4.0); Glucose, Blood 138.0 mg/dL (70-99); Potassium, Blood 3.6 mmol/L (3.5-5.5); Sodium, Blood 131.0 mmol/L (136-145); Total Protein, Blood 9.0 g/dL (6.4-8.2)
[2025-02-14] MEDS ORDERED: CefTRIAXone Sodium 2,000 MG in NS 100 ML IV ONE (01:25)
[2025-02-14] MEDS ORDERED: Ondansetron HCl 2 MG / ML 2ML Vial IV ONE (01:55)
[2025-02-14 09:49] VITALS: BP 138/90
== END 2025-02-14 09:48 | disposition home or self-care (01) ==
LOC: ER 23:14
PROVIDERS: Emergency Medicine
DX: L03.116 Cellulitis of left lower limb (principal); I10 Essential (primary) hypertension; Z59.89 Other problems related to housing and economic circumstances; E78.5 Hyperlipidemia, unspecified; G47.33 Obstructive sleep apnea (adult) (pediatric); E11.9 Type 2 diabetes mellitus without complications; Z79.4 Long term (current) use of insulin; Z79.2 Long term (current) use of antibiotics; Z79.84 Long term (current) use of oral hypoglycemic drugs; Z79.899 Other long term (current) drug therapy; F17.200 Nicotine dependence, unspecified, uncomplicated
CPT/HCPCS: 36415; 80053; 83605; 85025; 87040; 93005; 93010; 93971; 96365; 96375; 99284-25; J0696; J2405

== ENCOUNTER 2025-03-06 21:09 | Emergency (ER) | payer BC, OTHER ==
[~2025-03-06] VITALS: Ht 182.9 cm; Wt 163.3 kg
[2025-03-07] MEDS ORDERED: Ketorolac Tromethamine 15mg Vial IM ONE (00:50)
[2025-03-07] MEDS ORDERED: DOXY100 PO (03:13)
[2025-03-07 03:30] VITALS: BP 148/89
== END 2025-03-07 03:50 | disposition home or self-care (01) ==
LOC: ER 21:09
DX: L03.116 Cellulitis of left lower limb (principal); E11.9 Type 2 diabetes mellitus without complications; F17.210 Nicotine dependence, cigarettes, uncomplicated; Z86.718 Personal history of other venous thrombosis and embolism; Z79.84 Long term (current) use of oral hypoglycemic drugs; Z79.4 Long term (current) use of insulin; Z79.899 Other long term (current) drug therapy
CPT/HCPCS: 93971; 96372; 99283-25; A9270; J1885

== ENCOUNTER 2025-03-21 23:18 | Inpatient (IN) | payer BC, OTHER ==
[~2025-03-21] VITALS: Ht 182.9 cm; Wt 165.8 kg
[2025-03-22 04:28] LABS: BASOPHILS ABSOLUTE AUTO 0.04 K/mm3 (0.00-0.23); BASOPHILS PERCENT AUTO 0 % (0-2); EOSINOPHILS ABSOLUTE AUTO 0.18 K/mm3 (0.00-0.68); EOSINOPHILS PERCENT AUTO 1 % (0-6); Hematocrit 37.6 % (37.0-53.0); Hemoglobin 12.2 g/dL (13.5-17.5); IMMATURE GRAN ABSOLUTE AUTO 0.06 K/mm3 (0.00-0.10); IMMATURE GRAN PERCENT AUTO 0 % (0-1); LYMPHOCYTES ABSOLUTE AUTO 0.92 K/mm3 (0.84-5.20); LYMPHOCYTES PERCENT AUTO 7 % (21-46); MONOCYTES ABSOLUTE AUTO 0.69 K/mm3 (0.16-1.47); MONOCYTES PERCENT AUTO 5 % (4-13); Mean Corpuscular HGB Conc 32.4 g/dL (31.5-36.5); Mean Corpuscular Volume 92 fL (80-100); NEUTROPHILS ABSOLUTE AUTO 12.29 K/mm3 (1.96-9.15); NEUTROPHILS PERCENT AUTO 87 % (41-73); NRBC ABSOLUTE 0.00 K/mm3 (0.00-0.02); NRBC Auto 0.0 /100 WBC (0.0-0.2); Platelet Count 182 K/mm3 (150-400); RDW Coefficient Variation 13.7 % (11.7-14.2); RDW Standard Deviation 46.3 fL (35.1-46.3)
[2025-03-22 04:49] LABS: Alanine Aminotransfer (ALT/SGP 26.0 U/L (12-78); Albumin, Blood 3.3 g/dL (3.4-5.0); Albumin/Globulin Ratio 0.6 (0.8-1.8); Anion Gap 9.0 mmol/L (3-11); Aspartate Aminotrans (AST/SGOT 26.0 U/L (12-37); Bilirubin, Total 0.4 mg/dL (0.1-1.0); Blood Urea Nitrogen 12.0 mg/dL (8-24); CO2, Blood 27.0 mmol/L (21-32); Calcium, Blood 8.3 mg/dL (8.5-10.1); Chloride, Blood 103.0 mmol/L (98-108); Creatinine, Blood 0.69 mg/dL (0.60-1.20); Globulin, Blood 5.7 g/dL (2.2-4.0); Glucose, Blood 157.0 mg/dL (70-99); Potassium, Blood 4.3 mmol/L (3.5-5.5); Sodium, Blood 135.0 mmol/L (136-145); Total Protein, Blood 9.0 g/dL (6.4-8.2)
[2025-03-22] MEDS ORDERED: NS 1,000 ML IV SCH ×2 (05:10→06:00)
[2025-03-22] MEDS ORDERED: Ketorolac Tromethamine 15mg Vial IV ONE (05:10)
[2025-03-22] MEDS ORDERED: CefTRIAXone Sodium 1,000 MG in NS 100 ML IV ONE ×2 (05:10→08:15)
[2025-03-22] MEDS ORDERED: Vancomycin (Pharmacy Consult) IV SCH (05:20)
[2025-03-22] MEDS ORDERED: CeFAZolin Sodium 1,000 MG in NS 50 ML IV SCH (05:42)
[2025-03-22] MEDS ORDERED: CeFAZolin Sodium 2,000 MG in NS 100 ML IV SCH (05:50)
[2025-03-22] MEDS ORDERED: Vancomycin HCL 2,500 MG in NS 500 ML IV ONE (05:50)
[2025-03-22] MEDS ORDERED: Insulin Human Lispro 100 Units/ML 3ML Syringe SC SCH (07:30)
[2025-03-22] MEDS ORDERED: Insulin Glargine-Yfgn 100 Unit/mL 3 ML SYR SC SCH (08:00)
[2025-03-22] MEDS ORDERED: Enoxaparin 40 MG/0.4 ML SYR SC SCH (09:00)
[2025-03-22] MEDS ORDERED: Lactobacil 2-S.Thermo-Bifido 1 1 Cap PO SCH (09:00)
[2025-03-22 09:03] VITALS: BP 171/120
[2025-03-22 16:16] VITALS: BP 151/79
--- NOTE | 2025-03-22 17:48 | NUR ---
PATIENT TO FLOOR VIA WHEELCHAIR FROM ER WITH ADMISSION FOR TREATMENT OF ABX. PT SLEEPING MOST OF SHIFT, PATIENT DENIES HAVING A CPAP BUT APPEARS TO HAVE SLEEP APNEA. PATIENT MUMBLES RESPONSES ON ADMISSION. MEDICATION UPDATED BY THIS NURSE BASED ON PATIENT AVAILABILITY. IV ABX ADMINISTERED PER EMAR, ORIENTED TO ROOM, BED IN LOW POSITION AND ENCOURAGED TO USE CALL LIGHT FOR ASSISTANCE.
[2025-03-22 19:42] VITALS: BP 167/81
[2025-03-22] MEDS ORDERED: NS 250 ML IV PRN (22:35)
--- NOTE | 2025-03-23 04:55 | NUR ---
SHIFT SUMMARY NOC PT A/O X 4. PLEASANT AND COOPERATIVE WITH CARE. PT HAS BEEN SLEEPY ENTIRE SHIFT. BP/HR STILL ELEVATED. TEMP 99.9F DURING SHIFT CHANGE VS. HS CBG 151 WITH CNI SHORT ACTING, 20 UNITS LONG ACTING GIVEN PER EMAR. IV ABX PER EMAR. PT CURRENTLY RESTING WITH BED IN LOWEST POSITION, AND CALL LIGHT WITHIN REACH.
[2025-03-23 05:29] VITALS: BP 139/83
[2025-03-23 06:23] LABS: BASOPHILS ABSOLUTE AUTO 0.03 K/mm3 (0.00-0.23); BASOPHILS PERCENT AUTO 0 % (0-2); EOSINOPHILS ABSOLUTE AUTO 0.01 K/mm3 (0.00-0.68); EOSINOPHILS PERCENT AUTO 0 % (0-6); Hematocrit 35.2 % (37.0-53.0); Hemoglobin 11.7 g/dL (13.5-17.5); IMMATURE GRAN ABSOLUTE AUTO 0.10 K/mm3 (0.00-0.10); IMMATURE GRAN PERCENT AUTO 1 % (0-1); LYMPHOCYTES ABSOLUTE AUTO 1.19 K/mm3 (0.84-5.20); LYMPHOCYTES PERCENT AUTO 9 % (21-46); MONOCYTES ABSOLUTE AUTO 0.94 K/mm3 (0.16-1.47); MONOCYTES PERCENT AUTO 7 % (4-13); Mean Corpuscular HGB Conc 33.2 g/dL (31.5-36.5); Mean Corpuscular Volume 91 fL (80-100); NEUTROPHILS ABSOLUTE AUTO 10.47 K/mm3 (1.96-9.15); NEUTROPHILS PERCENT AUTO 82 % (41-73); NRBC ABSOLUTE 0.00 K/mm3 (0.00-0.02); NRBC Auto 0.0 /100 WBC (0.0-0.2); Platelet Count 167 K/mm3 (150-400); RDW Coefficient Variation 14.1 % (11.7-14.2); RDW Standard Deviation 47.0 fL (35.1-46.3)
[2025-03-23 06:42] LABS: Anion Gap 4.0 mmol/L (3-11); Blood Urea Nitrogen 6.0 mg/dL (8-24); CO2, Blood 27.0 mmol/L (21-32); Calcium, Blood 8.4 mg/dL (8.5-10.1); Chloride, Blood 101.0 mmol/L (98-108); Creatinine, Blood 0.69 mg/dL (0.60-1.20); Glucose, Blood 134.0 mg/dL (70-99); Potassium, Blood 3.5 mmol/L (3.5-5.5); Sodium, Blood 128.0 mmol/L (136-145)
[2025-03-23 08:38] VITALS: BP 108/82
[2025-03-23 17:22] VITALS: BP 126/77
--- NOTE | 2025-03-23 17:52 | NUR ---
NO ACUTE CHANGES, PG PLACED FOR IV ANTIBIOTICS, CALL LIGHT WITH IN REACH, CLEARLY MAKES NEEDS KNOWN, MEDICATED FOR PAIN X2, WILL RELAY TO PM RN
[2025-03-23 20:28] VITALS: BP 122/78
[2025-03-23 20:45] LABS: Vancomycin, Trough 15.9 ug/mL (5.0-10.0)
[2025-03-24 03:07] VITALS: BP 136/95
--- NOTE | 2025-03-24 04:45 | NUR ---
SHIFT SUMMARY NOC PT A/O X 4. PLEASANT AND COOPERATIVE WITH CARE. PT HAS BEEN SLEEPY ENTIRE SHIFT. VSS. HS CBG 170 CNI SHORT ACTING, 20 UNITS LONG ACTING GIVEN PER EMAR. POWERGLIDE RAPHAEL INFUSING IV ABX PER EMAR. PT CURRENTLY RESTING WITH BED IN LOWEST POSITION, AND CALL LIGHT WITHIN REACH.
[2025-03-24 07:11] VITALS: BP 149/88
[2025-03-24 09:22] LABS: BASOPHILS ABSOLUTE AUTO 0.02 K/mm3 (0.00-0.23); BASOPHILS PERCENT AUTO 0 % (0-2); EOSINOPHILS ABSOLUTE AUTO 0.18 K/mm3 (0.00-0.68); EOSINOPHILS PERCENT AUTO 2 % (0-6); Hematocrit 35.3 % (37.0-53.0); Hemoglobin 11.6 g/dL (13.5-17.5); IMMATURE GRAN ABSOLUTE AUTO 0.03 K/mm3 (0.00-0.10); IMMATURE GRAN PERCENT AUTO 0 % (0-1); LYMPHOCYTES ABSOLUTE AUTO 1.26 K/mm3 (0.84-5.20); LYMPHOCYTES PERCENT AUTO 12 % (21-46); MONOCYTES ABSOLUTE AUTO 0.58 K/mm3 (0.16-1.47); MONOCYTES PERCENT AUTO 6 % (4-13); Mean Corpuscular HGB Conc 32.9 g/dL (31.5-36.5); Mean Corpuscular Volume 91 fL (80-100); NEUTROPHILS ABSOLUTE AUTO 8.33 K/mm3 (1.96-9.15); NEUTROPHILS PERCENT AUTO 80 % (41-73); NRBC ABSOLUTE 0.00 K/mm3 (0.00-0.02); NRBC Auto 0.0 /100 WBC (0.0-0.2); Platelet Count 146 K/mm3 (150-400); RDW Coefficient Variation 14.1 % (11.7-14.2); RDW Standard Deviation 47.1 fL (35.1-46.3)
--- NOTE | 2025-03-24 09:59 | NUR ---
ASSUMED CARE OF PT. A/O X4 C/O HEADACHE PT MEDICATED PER OCT. LEFT LEG SWOLLEN BUT IS IMPROVING, NO TENDERNESS NOTED NO OPEN SORE. POWER GLIDE TO RIGHT UPPER ARM FLUSHES WELL WITH BLOOD RETURN. CALL LIGHT WITHIN REACH PT ABLE TO MAKE NEEDS KNOWN.
[2025-03-24 10:41] LABS: Anion Gap 3.0 mmol/L (3-11); Blood Urea Nitrogen 8.0 mg/dL (8-24); CO2, Blood 30.0 mmol/L (21-32); Calcium, Blood 8.2 mg/dL (8.5-10.1); Chloride, Blood 102.0 mmol/L (98-108); Creatinine, Blood 0.62 mg/dL (0.60-1.20); Glucose, Blood 161.0 mg/dL (70-99); Potassium, Blood 3.7 mmol/L (3.5-5.5); Sodium, Blood 131.0 mmol/L (136-145)
[2025-03-24 16:42] VITALS: BP 139/87
--- NOTE | 2025-03-24 18:35 | NUR ---
PT DOING WELL NO CHANGE, HAD SHOWER AND HAS BEEN INDEPENDANT IN ROOM, WENT FOR SEVERAL WALKS AROUND UNIT. POSSIBLE DISCHARGE IN THE MORNING. LEFT LEG EDEMA IS BETTER NO C/O PAIN.
[2025-03-24 19:58] VITALS: BP 122/74
[2025-03-25 04:38] VITALS: BP 137/92
--- NOTE | 2025-03-25 04:50 | NUR ---
PT A&O X4, VS WNL, REMAINS ON IVABX. LE'S WRAPPED WITH FAZAL FOR COMPRESSION. PT INDEPENDENT, USES CALL SYSTEM APPROPRIATELY, CBG WNL AND ONLY RECIEVED LONG ACTING INSULIN. PAIN MEDICATED AT HS WITH OXYCODONE. UOP WNL, PO INTAKE ADEQUATE. PLAN TO D/C TO HOME.
[2025-03-25 07:37] VITALS: BP 141/83
[2025-03-25 08:31] LABS: Vancomycin, Trough 9.7 ug/mL (5.0-10.0)
--- NOTE | 2025-03-25 10:04 | NUR ---
ASSUMED CARE PT IS DOING WELL. EDEMA TO LLE HAS LESSENED, MINIMAL C/O PAIN NO DISTRESS. NORMA BREAKFAST AND MORNING MEDS. DR PANDYA TO DISCHARGE THIS AM.
[2025-03-25] MEDS ORDERED: FURO40 PO (11:02)
[2025-03-25] MEDS ORDERED: VISBIOME 112.51 EACH PO (11:03)
[2025-03-25] MEDS ORDERED: LEVOFLOXACIN750 MG PO (11:04)
[2025-03-25] MEDS ORDERED: METO2.5 PO (11:05)
[2025-03-25] MEDS ORDERED: Chantix1 MG PO (11:06)
[2025-03-25] MEDS ORDERED: POTA10T PO (11:06)
--- NOTE | 2025-03-25 13:06 | NUR ---
NICK DONE DISCHARGE INSTRUCTIONS DONE MEDS FAXED. IV TO [facility]. PT AMBULATED OUTSIDE TO CAR.
== END 2025-03-25 12:09 | disposition home or self-care (01) | DRG 872 ==
LOC: ER 23:18 → ERHOLD 23:19 → MEDS 03-22 08:50
PROVIDERS: Internal Medicine; Student in an Organized Health Care Education/Training Program; ADMIT Student in an Organized Health Care Education/Training Program
DX: A41.9 Sepsis, unspecified organism (principal); L03.116 Cellulitis of left lower limb; Z68.42 Body mass index [BMI] 45.0-49.9, adult; E87.20 Acidosis, unspecified; R65.20 Severe sepsis without septic shock; G47.33 Obstructive sleep apnea (adult) (pediatric); E11.9 Type 2 diabetes mellitus without complications; I87.2 Venous insufficiency (chronic) (peripheral); I10 Essential (primary) hypertension; E78.5 Hyperlipidemia, unspecified; E66.01 Morbid (severe) obesity due to excess calories; I89.0 Lymphedema, not elsewhere classified; F12.90 Cannabis use, unspecified, uncomplicated; F17.210 Nicotine dependence, cigarettes, uncomplicated; Z79.84 Long term (current) use of oral hypoglycemic drugs; Z79.4 Long term (current) use of insulin; Z79.899 Other long term (current) drug therapy; Z79.2 Long term (current) use of antibiotics; Z99.89 Dependence on other enabling machines and devices; Z71.6 Tobacco abuse counseling
CPT/HCPCS: 36415; 73701; 80048; 80053; 80202; 82947; 83605; 85025; 87040; 96365; 96366; 96368; 96372; 96375; 99284; A9270; C1751; G0378; J0690; J0696; J1650; J1815; J1885; J1938; J3373; J7030; J7040; J7050; Q9967

== ENCOUNTER 2025-04-04 21:43 | Emergency (ER) | payer BC, OTHER ==
[~2025-04-04] VITALS: Ht 182.9 cm; Wt 158.8 kg
[~2025-04-04 21:43] MED LIST changes: +FURO40 PO; +LEVOFLOXACIN750 MG PO; +METO2.5 PO; +POTA10T PO
[2025-04-05 00:11] LABS: BASOPHILS ABSOLUTE AUTO 0.04 K/mm3 (0.00-0.23); BASOPHILS PERCENT AUTO 1 % (0-2); EOSINOPHILS ABSOLUTE AUTO 0.28 K/mm3 (0.00-0.68); EOSINOPHILS PERCENT AUTO 3 % (0-6); Hematocrit 33.2 % (37.0-53.0); Hemoglobin 11.2 g/dL (13.5-17.5); IMMATURE GRAN ABSOLUTE AUTO 0.03 K/mm3 (0.00-0.10); IMMATURE GRAN PERCENT AUTO 0 % (0-1); LYMPHOCYTES ABSOLUTE AUTO 2.61 K/mm3 (0.84-5.20); LYMPHOCYTES PERCENT AUTO 31 % (21-46); MONOCYTES ABSOLUTE AUTO 0.48 K/mm3 (0.16-1.47); MONOCYTES PERCENT AUTO 6 % (4-13); Mean Corpuscular HGB Conc 33.7 g/dL (31.5-36.5); Mean Corpuscular Volume 90 fL (80-100); NEUTROPHILS ABSOLUTE AUTO 5.02 K/mm3 (1.96-9.15); NEUTROPHILS PERCENT AUTO 59 % (41-73); NRBC ABSOLUTE 0.00 K/mm3 (0.00-0.02); NRBC Auto 0.0 /100 WBC (0.0-0.2); Platelet Count 208 K/mm3 (150-400); RDW Coefficient Variation 13.1 % (11.7-14.2); RDW Standard Deviation 42.9 fL (35.1-46.3)
[2025-04-05 00:30] LABS: Alanine Aminotransfer (ALT/SGP 19.0 U/L (12-78); Albumin, Blood 2.9 g/dL (3.4-5.0); Albumin/Globulin Ratio 0.6 (0.8-1.8); Anion Gap 7.0 mmol/L (3-11); Aspartate Aminotrans (AST/SGOT 18.0 U/L (12-37); Bilirubin, Total 0.3 mg/dL (0.1-1.0); Blood Urea Nitrogen 15.0 mg/dL (8-24); CO2, Blood 27.0 mmol/L (21-32); Calcium, Blood 8.8 mg/dL (8.5-10.1); Chloride, Blood 103.0 mmol/L (98-108); Creatinine, Blood 0.76 mg/dL (0.60-1.20); Globulin, Blood 5.1 g/dL (2.2-4.0); Glucose, Blood 189.0 mg/dL (70-99); Potassium, Blood 3.0 mmol/L (3.5-5.5); Sodium, Blood 134.0 mmol/L (136-145); Total Protein, Blood 8.0 g/dL (6.4-8.2)
[2025-04-05] MEDS ORDERED: NS 1,000 ML IV SCH (01:05)
[2025-04-05] MEDS ORDERED: Ondansetron HCl 2 MG / ML 2ML Vial IV ONE (01:05)
[2025-04-05 01:24] LABS: Influenza A, PCR NEGATIVE (NEGATIVE); Influenza B, PCR NEGATIVE (NEGATIVE); Resp Syncytial Virus, PCR NEGATIVE (NEGATIVE); SARS-Cov-2 (COVID-19) PCR, MMC NEGATIVE (NEGATIVE)
[2025-04-05] MEDS ORDERED: LOPE2C PO (02:20)
[2025-04-05] MEDS ORDERED: ONDA4ODT MM (02:20)
[2025-04-05] MEDS ORDERED: PROBIOTIC1 EA13 PO (02:20)
[2025-04-05] MEDS ORDERED: POTA10T PO (02:20)
[2025-04-05] MEDS ORDERED: NS 250 ML IV PRN (02:30)
[2025-04-05 05:15] VITALS: BP 150/98
== END 2025-04-05 05:34 | disposition home or self-care (01) ==
LOC: ER 21:43
PROVIDERS: Student in an Organized Health Care Education/Training Program
DX: E86.0 Dehydration (principal); R19.7 Diarrhea, unspecified; E87.6 Hypokalemia; I87.2 Venous insufficiency (chronic) (peripheral); I89.0 Lymphedema, not elsewhere classified; F17.200 Nicotine dependence, unspecified, uncomplicated; E78.5 Hyperlipidemia, unspecified; I10 Essential (primary) hypertension; E11.9 Type 2 diabetes mellitus without complications; G47.33 Obstructive sleep apnea (adult) (pediatric); Z79.84 Long term (current) use of oral hypoglycemic drugs; Z79.899 Other long term (current) drug therapy
CPT/HCPCS: 71046; 80053; 85025; 87637; 93005; 93010; 96365; 96366; 96375; 99284-25; J2405; J3480; J7050

== ENCOUNTER 2025-05-09 17:47 | Inpatient (IN) | payer BC, OTHER ==
[~2025-05-09] VITALS: Ht 182.9 cm; Wt 165.8 kg
[~2025-05-09 17:47] MED LIST changes: +LOPE2C PO; +ONDA4ODT MM
[2025-05-09] MEDS ORDERED: METF500 PO (18:33)
[2025-05-09] MEDS ORDERED: OZEMPIC0.25 MG/02 SC (18:34)
[2025-05-09] MEDS ORDERED: METOPROLOL TART25 MG PO (18:36)
[2025-05-09 18:37] LABS: BASOPHILS ABSOLUTE AUTO 0.05 K/mm3 (0.00-0.23); BASOPHILS PERCENT AUTO 0 % (0-2); EOSINOPHILS ABSOLUTE AUTO 0.14 K/mm3 (0.00-0.68); EOSINOPHILS PERCENT AUTO 1 % (0-6); Hematocrit 39.0 % (37.0-53.0); Hemoglobin 13.0 g/dL (13.5-17.5); IMMATURE GRAN ABSOLUTE AUTO 0.05 K/mm3 (0.00-0.10); IMMATURE GRAN PERCENT AUTO 0 % (0-1); LYMPHOCYTES ABSOLUTE AUTO 1.35 K/mm3 (0.84-5.20); LYMPHOCYTES PERCENT AUTO 9 % (21-46); MONOCYTES ABSOLUTE AUTO 0.70 K/mm3 (0.16-1.47); MONOCYTES PERCENT AUTO 5 % (4-13); Mean Corpuscular HGB Conc 33.3 g/dL (31.5-36.5); Mean Corpuscular Volume 91 fL (80-100); NEUTROPHILS ABSOLUTE AUTO 12.20 K/mm3 (1.96-9.15); NEUTROPHILS PERCENT AUTO 84 % (41-73); NRBC ABSOLUTE 0.00 K/mm3 (0.00-0.02); NRBC Auto 0.0 /100 WBC (0.0-0.2); Platelet Count 201 K/mm3 (150-400); RDW Coefficient Variation 13.4 % (11.7-14.2); RDW Standard Deviation 45.3 fL (35.1-46.3)
[2025-05-09 19:07] LABS: Alanine Aminotransfer (ALT/SGP 22.0 U/L (12-78); Albumin, Blood 3.5 g/dL (3.4-5.0); Albumin/Globulin Ratio 0.7 (0.8-1.8); Anion Gap 4.0 mmol/L (3-11); Aspartate Aminotrans (AST/SGOT 20.0 U/L (12-37); Bilirubin, Total 0.3 mg/dL (0.1-1.0); Blood Urea Nitrogen 12.0 mg/dL (8-24); CO2, Blood 30.0 mmol/L (21-32); Calcium, Blood 8.7 mg/dL (8.5-10.1); Chloride, Blood 102.0 mmol/L (98-108); Creatinine, Blood 0.95 mg/dL (0.60-1.20); Globulin, Blood 5.3 g/dL (2.2-4.0); Glucose, Blood 127.0 mg/dL (70-99); Potassium, Blood 4.3 mmol/L (3.5-5.5); Sodium, Blood 132.0 mmol/L (136-145); Total Protein, Blood 8.8 g/dL (6.4-8.2)
[2025-05-09] MEDS ORDERED: FentaNYL Citrate 50 MCG/ML 2 ML Injection IV PRN (19:55)
[2025-05-09] MEDS ORDERED: HYDROcodone 5-APAP 325 TAB PO ONE (20:30)
[2025-05-09] MEDS ORDERED: NS 1,000 ML IV SCH (20:45)
[2025-05-09] MEDS ORDERED: Glipizide Xl2.5 MG PO (21:51)
[2025-05-09] MEDS ORDERED: CefTRIAXone Sodium 2,000 MG in NS 100 ML IV ONE (22:40)
[2025-05-09] MEDS ORDERED: CefTRIAXone Sodium 1,000 MG in NS 50 ML IV ONE (22:40)
[2025-05-09] MEDS ORDERED: Ketorolac Tromethamine 15mg Vial IV ONE (22:40)
[2025-05-09 23:04] LABS: Magnesium, Blood 1.7 mg/dL (1.6-2.4); Phosphorus, Blood 3.6 mg/dL (2.5-4.9)
[2025-05-09] MEDS ORDERED: Vancomycin (Pharmacy Consult) IV SCH (23:25)
[2025-05-09] MEDS ORDERED: FLU VACC TS2025-26(6MOS UP)/PF 45 MCG/0.5 ML SYRINGE IM ONE (23:25)
[2025-05-09] MEDS ORDERED: Vancomycin HCL 2,500 MG in NS 500 ML IV ONE (23:55)
[2025-05-09] MEDS ORDERED: Ketorolac Tromethamine 15mg Vial IV PRN (23:55)
[2025-05-10 02:24] VITALS: BP 129/83
[2025-05-10] MEDS ORDERED: BASAGLAR K100 UNIT/1 SC (02:31)
[2025-05-10] MEDS ORDERED: Chantix1 MG PO (02:37)
[2025-05-10 03:55] VITALS: BP 136/116
[2025-05-10 04:19] LABS: BASOPHILS ABSOLUTE AUTO 0.02 K/mm3 (0.00-0.23); BASOPHILS PERCENT AUTO 0 % (0-2); EOSINOPHILS ABSOLUTE AUTO 0.00 K/mm3 (0.00-0.68); EOSINOPHILS PERCENT AUTO 0 % (0-6); Hematocrit 36.8 % (37.0-53.0); Hemoglobin 12.3 g/dL (13.5-17.5); IMMATURE GRAN ABSOLUTE AUTO 0.07 K/mm3 (0.00-0.10); IMMATURE GRAN PERCENT AUTO 1 % (0-1); LYMPHOCYTES ABSOLUTE AUTO 0.35 K/mm3 (0.84-5.20); LYMPHOCYTES PERCENT AUTO 3 % (21-46); MONOCYTES ABSOLUTE AUTO 0.14 K/mm3 (0.16-1.47); MONOCYTES PERCENT AUTO 1 % (4-13); Mean Corpuscular HGB Conc 33.4 g/dL (31.5-36.5); Mean Corpuscular Volume 91 fL (80-100); NEUTROPHILS ABSOLUTE AUTO 10.12 K/mm3 (1.96-9.15); NEUTROPHILS PERCENT AUTO 95 % (41-73); NRBC ABSOLUTE 0.00 K/mm3 (0.00-0.02); NRBC Auto 0.0 /100 WBC (0.0-0.2); Platelet Count 152 K/mm3 (150-400); RDW Coefficient Variation 13.7 % (11.7-14.2); RDW Standard Deviation 45.2 fL (35.1-46.3)
[2025-05-10 04:43] LABS: Alanine Aminotransfer (ALT/SGP 16.0 U/L (12-78); Albumin, Blood 2.9 g/dL (3.4-5.0); Albumin/Globulin Ratio 0.6 (0.8-1.8); Anion Gap 8.0 mmol/L (3-11); Aspartate Aminotrans (AST/SGOT 12.0 U/L (12-37); Bilirubin, Total 0.3 mg/dL (0.1-1.0); Blood Urea Nitrogen 15.0 mg/dL (8-24); CO2, Blood 25.0 mmol/L (21-32); Calcium, Blood 8.1 mg/dL (8.5-10.1); Chloride, Blood 102.0 mmol/L (98-108); Creatinine, Blood 0.85 mg/dL (0.60-1.20); Globulin, Blood 4.7 g/dL (2.2-4.0); Glucose, Blood 122.0 mg/dL (70-99); Potassium, Blood 4.1 mmol/L (3.5-5.5); Sodium, Blood 131.0 mmol/L (136-145); Total Protein, Blood 7.6 g/dL (6.4-8.2)
--- NOTE | 2025-05-10 06:36 | NUR ---
SHIFT SUMMARY PATIETN ARRIVED TO PCU 05 VIA STRETCHER. PATIENT ALERT AND ORIENTED X4, ABLE TO SELF TRANSFER TO HOSPITAL BED. PATIENT'S LEFT LOWER LEG HAS NOTABLE SWELLING AND IS HOT TO TOUCH, PEDAL PULSE ABLE TO BE FELT. PATIENT PAIN OF 5/10 BUT DENIES NEEDING PAIN MEDICATIONS AT THIS TIME. ON ROOM AIR WITH SPO2 >90%. BLOOD PRESSURE STABLE, SINUS TACH 110'S ON TELE. WILL CONTINUE TO MONITOR. CALL LIGHT WITHIN REACH.
[2025-05-10 07:13] VITALS: BP 137/86
[2025-05-10] MEDS ORDERED: Insulin Human Lispro 100 Units/ML 3ML Syringe SC SCH (07:30)
[2025-05-10] MEDS ORDERED: NS 1,000 ML IV SCH (07:40)
[2025-05-10] MEDS ORDERED: CeFAZolin Sodium 2,000 MG in NS 100 ML IV SCH (08:00)
--- NOTE | 2025-05-10 08:58 | NUR ---
am note this rn assumed care at 0700. patient heart rate sinus tachycardia 130s, oral temperature of 103.2 and respirations in the 40s with spo2 >90% on room air. this rn gave patient oral tylenol, removed blankets, and put ice packs on. this rn provided the patient with education on fevers. this rn then called md begum to notify and normal saline at 125mls/hr was ordered. see orders. this rn at bedside with md begum at 0815 and reassessed temperature was 100.3. patient is sleepy this morning, but when awakes is alert and oriented x4. patient is able to make needs known and uses call light appropriately. patient denies pain, chest pain/pressure or shortness of breath. patient is able to void independently. patient has reddness to left lower leg from cellulitis. see shift assessment for further detials. plan to continue fluids and iv abx.
[2025-05-10] MEDS ORDERED: Lactobacil 2-S.Thermo-Bifido 1 1 Cap PO SCH (09:00)
[2025-05-10] MEDS ORDERED: Enoxaparin 40 MG/0.4 ML SYR SC SCH ×2 (09:00→21:00)
[2025-05-10 11:32] VITALS: BP 144/90
[2025-05-10 15:32] VITALS: BP 154/85
--- NOTE | 2025-05-10 16:57 | NUR ---
shift summary patient vitals remain stable. patient has been ferbile off and on today. the patient fever has been controled with oral tylenol and ice packs. patient has slept off and on throughout the day. patient has had minimal input today, stating "not hungry". no acute changes. see previous note.
[2025-05-10 19:49] VITALS: BP 134/78
[2025-05-10] MEDS ORDERED: Insulin Glargine,Hum.Rec.Anlog 100 UNIT/ML 3MLSYR SC SCH (21:00)
[2025-05-10] MEDS ORDERED: Insulin Glargine 100 Unit/ML 3 ML SYR SC SCH (21:00)
[2025-05-11] VITALS (7 sets, daily range): BP systolic 128–146; BP diastolic 70–99
[2025-05-11 06:04] LABS: BASOPHILS ABSOLUTE AUTO 0.03 K/mm3 (0.00-0.23); BASOPHILS PERCENT AUTO 0 % (0-2); EOSINOPHILS ABSOLUTE AUTO 0.00 K/mm3 (0.00-0.68); EOSINOPHILS PERCENT AUTO 0 % (0-6); Hematocrit 33.9 % (37.0-53.0); Hemoglobin 11.2 g/dL (13.5-17.5); IMMATURE GRAN ABSOLUTE AUTO 0.15 K/mm3 (0.00-0.10); IMMATURE GRAN PERCENT AUTO 1 % (0-1); LYMPHOCYTES ABSOLUTE AUTO 0.73 K/mm3 (0.84-5.20); LYMPHOCYTES PERCENT AUTO 7 % (21-46); MONOCYTES ABSOLUTE AUTO 0.40 K/mm3 (0.16-1.47); MONOCYTES PERCENT AUTO 4 % (4-13); Mean Corpuscular HGB Conc 33.0 g/dL (31.5-36.5); Mean Corpuscular Volume 90 fL (80-100); NEUTROPHILS ABSOLUTE AUTO 9.74 K/mm3 (1.96-9.15); NEUTROPHILS PERCENT AUTO 88 % (41-73); NRBC ABSOLUTE 0.00 K/mm3 (0.00-0.02); NRBC Auto 0.0 /100 WBC (0.0-0.2); Platelet Count 137 K/mm3 (150-400); RDW Coefficient Variation 13.8 % (11.7-14.2); RDW Standard Deviation 46.1 fL (35.1-46.3)
--- NOTE | 2025-05-11 06:46 | NUR ---
NO ACUTE EVENTS OVERNIGHT. PT WAS FEBRILE WITH A TEEMP OF 100.4. TYLENOL GIVEN ORDERED. PT REMAINED FEBRILE WITH A TEMP OF 100.3. ANOTHER DOSE OF TYLENOL GIVEN ORDERED. PT WAS AFEBRILE AFTER SECOND DOSE. PT STATES HE IS FEELING BETTER. IV FLUIDS INFUSING. 2L O2 VIA NASAL CANNULA WHILE SLEEPING. BED LOCKED IN LOWEST POSITION. CALL LIGHT WITHIN REACH. PT USING URINAL APPROPRIATELY.
[2025-05-11 07:05] LABS: Anion Gap 7.0 mmol/L (3-11); Blood Urea Nitrogen 11.0 mg/dL (8-24); CO2, Blood 24.0 mmol/L (21-32); Calcium, Blood 7.9 mg/dL (8.5-10.1); Chloride, Blood 103.0 mmol/L (98-108); Creatinine, Blood 0.69 mg/dL (0.60-1.20); Glucose, Blood 80.0 mg/dL (70-99); Magnesium, Blood 1.7 mg/dL (1.6-2.4); Phosphorus, Blood 1.9 mg/dL (2.5-4.9); Potassium, Blood 3.3 mmol/L (3.5-5.5); Sodium, Blood 131.0 mmol/L (136-145)
[2025-05-11] MEDS ORDERED: Potassium Phosphate Dibasic 15 MM in Dextrose 5% 250 ML IV STA (07:25)
[2025-05-11] MEDS ORDERED: Potassium Phosphate Dibasic 30 MM in Dextrose 5% 500 ML IV SCH (10:30)
--- NOTE | 2025-05-11 19:16 | NUR ---
SHIFT SUMMARY PATIENT TIRED BUT ORIENTED X4 ABLE TO MAKE NEEDS KNOWN. HIS VITALS ARE STABLE WITH SINUS TACH 100-120S. HE DID COMPLAIN OF L LEG PAIN WHICH WAS TREATED PER MAR. BY END OF SHIFT HE DID BECOME MORE ALERT AND AMBULATED TO THE CHAIR. HE VOIDS IN THE URINAL AND TOLERATES HI MEALS.
--- NOTE | 2025-05-11 21:06 | NUR ---
PM NOTE PT UP IN CHAIR, ALERT, ORINETED X4; CALM AND COOPERATIVE WITH CARE. PT RESTING IN BED, UP WITH SBA TO BED. PT REPORTS PAIN AT 6/10, WILL MEDICATE PER EMAR. PT DENIES CHEST PAIN/PRESSURE, SOB, NAUSEA, AND DIZZINESS. PT REPORTS NEUROPATHY BASELINE. BLE EDEMA NOTED. LEFT WORSE THAN RIGHT; MILD DISCOLORATION ON RLE, SIGNIFICANT DISCOLORATION AND FIRMNESS TO LLR. TELE SINUS TACH 100'S, BP STABLE. ABD SOFT, NONTENDER + BT T/O. OTHER VSS. CALL LIGHT WITH IN REACH.
[2025-05-12] VITALS (7 sets, daily range): BP systolic 143–163; BP diastolic 96–110
[2025-05-12 03:47] LABS: BASOPHILS ABSOLUTE AUTO 0.02 K/mm3 (0.00-0.23); BASOPHILS PERCENT AUTO 0 % (0-2); EOSINOPHILS ABSOLUTE AUTO 0.06 K/mm3 (0.00-0.68); EOSINOPHILS PERCENT AUTO 1 % (0-6); Hematocrit 32.1 % (37.0-53.0); Hemoglobin 10.8 g/dL (13.5-17.5); IMMATURE GRAN ABSOLUTE AUTO 0.06 K/mm3 (0.00-0.10); IMMATURE GRAN PERCENT AUTO 1 % (0-1); LYMPHOCYTES ABSOLUTE AUTO 0.88 K/mm3 (0.84-5.20); LYMPHOCYTES PERCENT AUTO 10 % (21-46); MONOCYTES ABSOLUTE AUTO 0.47 K/mm3 (0.16-1.47); MONOCYTES PERCENT AUTO 6 % (4-13); Mean Corpuscular HGB Conc 33.6 g/dL (31.5-36.5); Mean Corpuscular Volume 89 fL (80-100); NEUTROPHILS ABSOLUTE AUTO 7.13 K/mm3 (1.96-9.15); NEUTROPHILS PERCENT AUTO 83 % (41-73); NRBC ABSOLUTE 0.00 K/mm3 (0.00-0.02); NRBC Auto 0.0 /100 WBC (0.0-0.2); Platelet Count 136 K/mm3 (150-400); RDW Coefficient Variation 13.7 % (11.7-14.2); RDW Standard Deviation 45.0 fL (35.1-46.3)
[2025-05-12 04:11] LABS: Anion Gap 7.0 mmol/L (3-11); Blood Urea Nitrogen 9.0 mg/dL (8-24); CO2, Blood 26.0 mmol/L (21-32); Calcium, Blood 8.0 mg/dL (8.5-10.1); Chloride, Blood 104.0 mmol/L (98-108); Creatinine, Blood 0.57 mg/dL (0.60-1.20); Glucose, Blood 115.0 mg/dL (70-99); Magnesium, Blood 2.0 mg/dL (1.6-2.4); Phosphorus, Blood 1.4 mg/dL (2.5-4.9); Potassium, Blood 3.6 mmol/L (3.5-5.5); Sodium, Blood 133.0 mmol/L (136-145)
--- NOTE | 2025-05-12 04:54 | NUR ---
SHIFT SUMMARY PT HAD SLEEP OXIMETRY DURING SHIFT. TMAX 100.4; MEDICATED PER ORDERS; HR TRENDING UP TO 120S. MEDICATED FOR LLE PAIN WITH KETOROLAC. OTHERS VSS. CALL LIGHT WITH IN REACH
[2025-05-12] MEDS ORDERED: Potassium Phosphate Dibasic 30 MM in Dextrose 5% 500 ML IV STA (06:43)
--- NOTE | 2025-05-12 09:53 | NUR ---
AM NOTE: PATIENT ALERT AND ORIENTED X4. PERRLA. MOVING ALL EXTREMITIES WITH MARTINEZ ROM NOTED IN LLE DUE TO CELLULITIS AND LYMPHEDEMA. USING CALL LIGHT FOR NEEDS. ENCOURAGED TO GET UP TO RECLINER. ABLE TO REPOSITION SELF IN BED. TELE SHOWING ST WITH HR 100-110'S. DENIES CHEST PAIN/PRESSURE/PALPITATIONS. SBP 150'S. IV FLUIDS INFUSING PER EMAR. EDEMA NOTED TO BLE WORSE IN LLE. ON ROOM AIR THIS AM SATING ABOVE 95%. PATIENT REPORTS NEEDING 2L AT TIMES WHEN SLEEPING. LUNG SOUNDS CLEAR IN BILATERAL UPPER LOBES AND DIMINSHED IN LOWER. DENIES SOB/COUGH. COMPLAINS OF FEELING CONGESTED IN RIGHT EAR. BOWEL TONES PRESENT. TOLERATING PO DIET. COMPLAINS OF CONSTIPATION, BOWEL CARE MEDS ON BOARD. USING URINAL IN BED. DR. KISHA WALLER AND DR. BERRY TO BEDSIDE THIS AM. THIS RN PRESENT FOR MD ROUNDING. NO NEW ORDERS FOR THIS RN TO PLACE. MRSA NOSE SWAB SENT TO LAB. LLE BROWN/PURPLE/RED DISCOLORATION WITH WARM/HARDENED SKIN. MD'S AT BEDSIDE ASSESSED LLE. IV ABX INFUSED. ACHS BLOOD SUGARS ONGOING. CALL LIGHT IN REACH. DENIES NEEDS AT THIS TIME.
--- NOTE | 2025-05-12 12:12 | NUR ---
PATIENT MEDICAL STATUS NO TELE. AFTERNOON VITALS STABLE. DENIES PAIN AT THIS TIME. SLEEPING ON AND OFF. REMAINS ON ROOM AIR. ENCOURAGED TO GET UP OOB. LEFT LEG ELEVATED ON PILLOWS. NO CHANGES TO TELE, REMAINS ST WITH HR 100-110. IV NORMAL SALINE DISCONTINUED. CALL LIGHT IN REACH.
--- NOTE | 2025-05-12 16:19 | NUR ---
TRANSFER: REPORT GIVEN TO ANTON THOMPSON. NO ACUTE CHANGES. PATIENT REMAINS ALERT AND ORIENTED. ON ROOM AIR. MEDICAL STATUS NO TELE. PATIENT TAKEN UPSTAIRS WITH ALL PERSONAL BELONGINGS, MEDICATIONS AND CHART VIA WHEELCHAIR.
--- NOTE | 2025-05-12 16:55 | NUR ---
TRANSFER NOTE: PT ARRIVED TO ROOM 328 AT 1625. TRANSFERED SELF TO BED FROM W/C. ABX AND K PHOS RUNNING PER EMAR. VSS UPON ARRIVAL. DENIES SHORTNESS OF BREATH AND/OR CHEST PAIN/PRESSURE. ON ROOM AIR WITH O2 SATS >90%. LYING IN BED AT THIS TIME. BED LOCKED AND IN THE LOWEST POSITION. CALL LT WITHIN REACH.
[2025-05-12] MEDS ORDERED: Polyethylene Glycol 3350 17 gm PO SCH (21:00)
[2025-05-12] MEDS ORDERED: NS 250 ML IV PRN (23:10)
[2025-05-13 03:38] VITALS: BP 162/108
[2025-05-13 04:08] VITALS: BP 142/85
--- NOTE | 2025-05-13 05:19 | NUR ---
SHIFT SUMMARY PT WITH ELEVATED BP. NEW ORDER RECEIVED FOR NORVASC WITH EVENTUAL IMPROVEMENT OF BP. PT WITH CONTINUOUS PULSE OX IN PLACE. 2L NC REQUIRED WHILE PT SLEEPING TO MAINTAIN SATS >90. PT AFEBRILE DURING THE NIGHT. PT MEDICATED FOR PAIN WITH TORADOL AND TYLENOL PER EMAR. IV ANTIBIOTICS CONTINUE PER ORDER. PT'S LLE CELLULITIS AND LYMPHEDEMA REMAIN UNCHANGED PER PT. PT SLEPT INTERMITTENTLY DURING THE NIGHT.
[2025-05-13 06:29] LABS: BASOPHILS ABSOLUTE AUTO 0.04 K/mm3 (0.00-0.23); BASOPHILS PERCENT AUTO 0 % (0-2); EOSINOPHILS ABSOLUTE AUTO 0.04 K/mm3 (0.00-0.68); EOSINOPHILS PERCENT AUTO 0 % (0-6); Hematocrit 31.6 % (37.0-53.0); Hemoglobin 10.7 g/dL (13.5-17.5); IMMATURE GRAN ABSOLUTE AUTO 0.08 K/mm3 (0.00-0.10); IMMATURE GRAN PERCENT AUTO 1 % (0-1); LYMPHOCYTES ABSOLUTE AUTO 1.12 K/mm3 (0.84-5.20); LYMPHOCYTES PERCENT AUTO 12 % (21-46); MONOCYTES ABSOLUTE AUTO 0.80 K/mm3 (0.16-1.47); MONOCYTES PERCENT AUTO 8 % (4-13); Mean Corpuscular HGB Conc 33.9 g/dL (31.5-36.5); Mean Corpuscular Volume 88 fL (80-100); NEUTROPHILS ABSOLUTE AUTO 7.55 K/mm3 (1.96-9.15); NEUTROPHILS PERCENT AUTO 79 % (41-73); NRBC ABSOLUTE 0.00 K/mm3 (0.00-0.02); NRBC Auto 0.0 /100 WBC (0.0-0.2); Platelet Count 140 K/mm3 (150-400); RDW Coefficient Variation 13.5 % (11.7-14.2); RDW Standard Deviation 43.5 fL (35.1-46.3)
[2025-05-13 07:04] LABS: Anion Gap 7.0 mmol/L (3-11); Blood Urea Nitrogen 6.0 mg/dL (8-24); CO2, Blood 28.0 mmol/L (21-32); Calcium, Blood 8.2 mg/dL (8.5-10.1); Chloride, Blood 102.0 mmol/L (98-108); Creatinine, Blood 0.49 mg/dL (0.60-1.20); Glucose, Blood 116.0 mg/dL (70-99); Magnesium, Blood 2.0 mg/dL (1.6-2.4); Phosphorus, Blood 2.1 mg/dL (2.5-4.9); Potassium, Blood 3.5 mmol/L (3.5-5.5); Sodium, Blood 133.0 mmol/L (136-145)
[2025-05-13 07:14] VITALS: BP 134/89
[2025-05-13] MEDS ORDERED: Sodium Phosphate 15 MM in Dextrose 5% 500 ML IV STA (07:21)
[2025-05-13] MEDS ORDERED: Fluticasone 0.05% Nasal Spray SCH (09:00)
[2025-05-13] MEDS ORDERED: Docusate Sodium/Senna 1 Tab PO ONE (14:10)
[2025-05-13] MEDS ORDERED: NORVASC5 MG PO (15:15)
[2025-05-13] MEDS ORDERED: Flonase 0.05% N16 GM (15:16)
[2025-05-13] MEDS ORDERED: CEPH500 PO (15:16)
--- NOTE | 2025-05-13 16:50 | NUR ---
PT DIACHARGED 1345 WITH DC INSTRUCTIONS. WHEELCHAIR OUT TO CAR, HE IS INDEPENDANT IN DRIVING HIMSELF HOME. AWARE HE IS TO COMPLETE ALL ABX AND F/U WITH PCP- RX ORDER THAT HE IS NOT TO WORK UNTIL 05/18.
[2025-05-13] MEDS ORDERED: Potassium Phos/Sodium Phos 250 MG PACK PO SCH (17:00)
== END 2025-05-13 15:00 | disposition home or self-care (01) | DRG 872 ==
LOC: ER 17:47 → PCU 22:43 → MEDS 05-12 16:38
PROVIDERS: Student in an Organized Health Care Education/Training Program; ADMIT Internal Medicine
DX: A41.9 Sepsis, unspecified organism (principal); E87.1 Hypo-osmolality and hyponatremia; L03.116 Cellulitis of left lower limb; Z68.42 Body mass index [BMI] 45.0-49.9, adult; I10 Essential (primary) hypertension; E78.5 Hyperlipidemia, unspecified; E83.39 Other disorders of phosphorus metabolism; E87.6 Hypokalemia; E11.9 Type 2 diabetes mellitus without complications; G47.33 Obstructive sleep apnea (adult) (pediatric); F17.210 Nicotine dependence, cigarettes, uncomplicated; E86.0 Dehydration; D64.9 Anemia, unspecified; K59.00 Constipation, unspecified; E66.01 Morbid (severe) obesity due to excess calories; Z79.4 Long term (current) use of insulin; Z79.84 Long term (current) use of oral hypoglycemic drugs; Z79.85 Long-term (current) use of injectable non-insulin antidiabetic drugs; Z79.899 Other long term (current) drug therapy
CPT/HCPCS: 36415; 73590; 80048; 80053; 82947; 83605; 83735; 84100; 85025; 93971; 94760; 94762; 96360; 99285-25; A9270; C1751; J0690; J0696; J1650; J1815; J1885; J3010; J3373; J7030; J7040; J7050; J7060

== ENCOUNTER 2025-05-29 03:56 | Day surgery (SDC) | payer BC, OTHER ==
[~2025-05-29 03:56] MED LIST changes: +BASAGLAR K100 UNIT/1 SC; +Flonase 0.05% N16 GM; +Glipizide Xl2.5 MG PO; +METOPROLOL TART25 MG PO; +NORVASC5 MG PO; +OZEMPIC0.25 MG/02 SC
== END 2025-05-29 23:17 | disposition home or self-care (01) ==
LOC: WOUND 03:56
DX: Z87.828 Personal history of other (healed) physical injury and trauma (principal); E78.5 Hyperlipidemia, unspecified; F17.210 Nicotine dependence, cigarettes, uncomplicated; I87.2 Venous insufficiency (chronic) (peripheral)
CPT/HCPCS: G0463